=== PATIENT | female | born 1975 ===

== ENCOUNTER 2020-07-14 10:56 | Outpatient (REF) | payer OTHER, SELFPAY ==
[2020-07-14 13:57] LABS: MANUAL DIFF FLAG NO
[2020-07-14 14:03] LABS: Basophils Percent Auto 0.4 % (0-2); Eosinophils Absolute Auto 0.1 X10*3/uL (0.0-0.4); Eosinophils Percent Auto 1.2 % (0-4); Hematocrit 38.4 % (37-47); Hemoglobin 12.4 g/dl (12.0-16.0); Imm Gran Abs Auto 0.04 X10*3/uL (0.00-0.03); Imm Gran Pct Auto 0.4 % (0.0-0.4); Lymphocytes Absolute Auto 3.2 X10*3/uL (1.2-4.9); Lymphocytes Percent Auto 30.5 % (20-40); Mean Corpuscular HGB Conc 32.3 g/dl (31.0-35.0); Mean Corpuscular Hemoglobin 26.1 pg (27.0-33.0); Mean Corpuscular Volume 80.8 fL (80-98); Mean Platelet Volume 10.7 fL (9.4-12.3); Monocytes Absolute Auto 0.8 X10*3/uL (0.1-1.2); Monocytes Percent Auto 7.6 % (2-11); Neutrophils Absolute Auto 6.3 X10*3/uL (2.0-8.3); Neutrophils Percent Auto 59.9 % (45-73); Platelet Count 305 X10*3/uL (160-400); Red Blood Count 4.75 X10*6/uL (4.20-5.50); Red Cell Distribution Width 13.8 % (11.0-16.0); White Blood Count 10.6 X10*3/uL (4.8-10.8)
[2020-07-14 14:09] LABS: Estimated Average Glucose 154 mg/dL
[2020-07-14 14:33] LABS: Anion Gap 10 (12-20); Blood Urea Nitrogen 7 mg/dL (9-16); Calcium 9.3 mg/dL (8.4-10.2); Carbon Dioxide 32 mmol/L (22-29); Chloride 96 mmol/L (96-108); Cholesterol 218 mg/dL; Estimated Glomerular Filt Rate > 60; Glucose Fasting 109 mg/dL (60-99); HDL Cholesterol 56 mg/dL; LDL Cholesterol Calculated 133 mg/dl; Lipase 46 U/L (8-78); Potassium 4.4 mmol/l (3.3-5.1); Sodium 134 mmol/L (135-145); Triglycerides 146 mg/dL
[2020-07-14 14:44] LABS: Creatinine Urine 208.39 mg/dL; Microalbum/Creatinine Ratio Ur 543.6 ug/mg cr
[2020-07-14 14:55] LABS: SARS COV2 IgG Negative (Negative)
[2020-07-14 14:59] LABS: Vitamin B12 1287 pg/mL (200-900)
[2020-07-18 13:47] LABS: Vitamin D 25-OH, D2 <4 ng/mL; Vitamin D 25-OH, D3 30 ng/mL; Vitamin D 25-OH, Total 30 ng/mL (30-100)
== END 2020-07-14 10:57 | disposition home or self-care (01) ==
LOC: HO.HMGCLDS 10:56
PROVIDERS: PCP Internal Medicine; Visit Provider Internal Medicine
DX: Z20.828 Contact with and (suspected) exposure to other viral communicable diseases (principal); E13.9 Other specified diabetes mellitus without complications; E66.9 Obesity, unspecified; R10.13 Epigastric pain
CPT/HCPCS: 36415; 80048; 80061; 82043; 82306; 82607; 83036; 83690; 85025; 86769; U0003

== ENCOUNTER 2020-11-24 11:27 | Outpatient (REF) | payer OTHER, SELFPAY ==
--- NOTE | ~2020-11-24 | MM_ITS ---
EXAMINATION: MM SCREENING DIGITAL BREAST TOMOSYNTHESIS, BILATERAL CLINICAL INFORMATION: Screening. Asymptomatic. The lifetime risk of breast cancer based on the Tyrer-Cuzick Model is 11%. COMPARISON: Mammography: 07/21/2019 and baseline exam 06/19/2018 TECHNIQUE: Digital breast tomosynthesis is performed in both the craniocaudal and mediolateral oblique views along with computer-aided detection (CAD). Synthesized 2D images are generated from the tomosynthesis. FINDINGS: There are scattered areas of fibroglandular density (ACR BI-RADS breast composition Category b). There are no significant masses, abnormal calcifications, or other abnormalities. Breast tissue composition borders on heterogeneously dense. Parenchymal pattern is similar to prior studies. The skin contours are smooth. No significant changes. MM/MM tomosynthesis screening BI IMPRESSION: No mammographic evidence of malignancy. ASSESSMENT: BI-RADS 1: Negative RECOMMENDATION: Routine annual mammography screening. This patient's information was entered into a reminder system with a target due date for their next mammogram.
== END 2020-11-24 11:28 | disposition home or self-care (01) ==
LOC: HO.MAMMO 11:27
PROVIDERS: Visit Provider Internal Medicine
DX: Z12.31 Encounter for screening mammogram for malignant neoplasm of breast (principal)
CPT/HCPCS: 77063; 77067

== ENCOUNTER 2021-01-19 09:32 | Outpatient (REF) | payer OTHER, SELFPAY ==
[2021-01-19 11:30] LABS: MANUAL DIFF FLAG NO
[2021-01-19 11:49] LABS: Basophils Percent Auto 0.5 % (0-2); Eosinophils Absolute Auto 0.2 X10*3/uL (0.0-0.4); Eosinophils Percent Auto 2.4 % (0-4); Hematocrit 36.6 % (37-47); Hemoglobin 11.4 g/dl (12.0-16.0); Imm Gran Abs Auto 0.02 X10*3/uL (0.00-0.03); Imm Gran Pct Auto 0.2 % (0.0-0.4); Lymphocytes Absolute Auto 3.1 X10*3/uL (1.2-4.9); Lymphocytes Percent Auto 35.9 % (20-40); Mean Corpuscular HGB Conc 31.1 g/dl (31.0-35.0); Mean Corpuscular Hemoglobin 25.1 pg (27.0-33.0); Mean Corpuscular Volume 80.4 fL (80-98); Mean Platelet Volume 10.3 fL (9.4-12.3); Monocytes Absolute Auto 0.9 X10*3/uL (0.1-1.2); Monocytes Percent Auto 9.9 % (2-11); Neutrophils Absolute Auto 4.5 X10*3/uL (2.0-8.3); Neutrophils Percent Auto 51.1 % (45-73); Platelet Count 280 X10*3/uL (160-400); Red Blood Count 4.55 X10*6/uL (4.20-5.50); Red Cell Distribution Width 13.2 % (11.0-16.0); White Blood Count 8.7 X10*3/uL (4.8-10.8)
[2021-01-19 12:08] LABS: Alanine Aminotransferase 17 U/L (0-31); Alkaline Phosphatase 78 U/L (39-117); Amylase 80 U/L (28-100); Anion Gap 11 (12-20); Aspartate Amino Transferase 14 U/L (5-31); Bilirubin Total 0.4 mg/dL (0.0-1.0); Blood Urea Nitrogen 10 mg/dL (9-16); Calcium 9.2 mg/dL (8.4-10.2); Carbon Dioxide 28 mmol/L (22-29); Chloride 101 mmol/L (96-108); Estimated Glomerular Filt Rate > 60; Glucose Random 138 mg/dL (60-115); Potassium 4.2 mmol/L (3.3-5.1); Sodium 136 mmol/L (135-145); Total Protein 7.2 g/dL (6.5-8.0)
== END 2021-01-19 09:33 | disposition home or self-care (01) ==
LOC: HO.HMGCLDS 09:32
PROVIDERS: PCP Internal Medicine; Visit Provider Internal Medicine
DX: R10.13 Epigastric pain (principal); R07.9 Chest pain, unspecified
CPT/HCPCS: 36415; 80053; 82150; 85025

== ENCOUNTER → 2021-01-20 14:47 | Outpatient (BNVA) | payer OTHER, SELFPAY | PROVIDERS: PCP Internal Medicine; Visit Provider Surgery | DX: R10.13 Epigastric pain (principal); R14.0 Abdominal distension (gaseous); R11.0 Nausea; K59.00 Constipation, unspecified; E67.8 Other specified hyperalimentation; Z88.5 Allergy status to narcotic agent; Z88.8 Allergy status to other drugs, medicaments and biological substances; Z98.84 Bariatric surgery status; Z79.4 Long term (current) use of insulin; Z79.899 Other long term (current) drug therapy | CPT/HCPCS: 99212 ==

== ENCOUNTER → 2021-02-01 14:40 | Outpatient (BNVA) | payer OTHER, SELFPAY | PROVIDERS: PCP Internal Medicine; Referring Provider Internal Medicine; Visit Provider Physician Assistant ==

== ENCOUNTER → 2021-04-27 08:21 | Outpatient (REF) | payer OTHER, SELFPAY ==
--- NOTE | ~2021-04-27 | NM_ITS ---
EXAMINATION: RADIONUCLIDE SOLID FOOD GASTRIC EMPTYING 4-HOUR STUDY CLINICAL INFORMATION: Early satiety, GERD, diabetes type 2, vomiting, nausea, distended. COMPARISON: No previous gastric emptying study is available for comparison. TECHNIQUE: A standard meal consisting of 4 oz of Egg Beaters brand equivalent tagged with 640 microcuries Tc-99m Sulfur Colloid, 8 oz water and 2 slices of toast with jelly was administered orally to the patient. Images were obtained using a dual head gamma camera in the anterior and posterior projections over of the stomach immediately post ingestion and at hourly intervals up to 4 hours post ingestion. The anterior and posterior counts at each time interval were averaged using the geometric mean and expressed as percentage of the immediate post ingestion counts. FINDINGS: There is good visualization of activity in the stomach immediately post ingestion. As the study progresses, there is only minimal visualization of small bowel activity. At the end of the study there is marked abnormal retention of activity in the stomach. Retention in the stomach at each time interval was: 1 hour 97% (normal 37%-90%) 2 hours 90% (normal 30%-60%) 3 hours 78% 4 hours 74% (normal 0%-10%) TX/TX gastric emptying study IMPRESSION: Abnormal study. There is marked abnormal retention of solid food in the stomach at 4 hours.
== END ==
LOC: HO.NUCMED 08:21
PROVIDERS: Visit Provider Physician Assistant
DX: R68.81 Early satiety (principal); E13.9 Other specified diabetes mellitus without complications
CPT/HCPCS: 78264; A9541

== ENCOUNTER → 2021-05-17 09:23 | Outpatient (BNVA) | payer OTHER, SELFPAY | PROVIDERS: PCP Internal Medicine; Referring Provider Internal Medicine; Visit Provider Physician Assistant ==

== ENCOUNTER 2021-08-15 11:26 | Outpatient (REF) | payer OTHER, SELFPAY ==
[2021-08-15 14:27] LABS: Alanine Aminotransferase 20 U/L (0-31); Albumin Level 4.3 g/dL (3.5-5.0); Alkaline Phosphatase 58 U/L (39-117); Anion Gap 11 (12-20); Aspartate Amino Transferase 18 U/L (5-31); Blood Urea Nitrogen 12 mg/dL (9-16); Calcium 9.4 mg/dL (8.4-10.2); Carbon Dioxide 29 mmol/L (22-29); Chloride 102 mmol/L (96-108); Estimated Glomerular Filt Rate > 60; Glucose Random 98 mg/dL (60-115); Potassium 4.3 mmol/L (3.3-5.1); Sodium 138 mmol/L (135-145); Total Protein 7.6 g/dL (6.5-8.0)
[2021-08-16 06:31] LABS: LDL Cholesterol Direct 94 mg/dL (<100)
== END 2021-08-15 11:27 | disposition home or self-care (01) ==
LOC: HO.HMGCLDS 11:26
PROVIDERS: PCP Internal Medicine; Visit Provider Internal Medicine
DX: E13.9 Other specified diabetes mellitus without complications (principal); E66.09 Other obesity due to excess calories; I10 Essential (primary) hypertension; K21.9 Gastro-esophageal reflux disease without esophagitis
CPT/HCPCS: 36415; 80053; 83721

== ENCOUNTER 2022-08-15 13:29 | Outpatient (REF) | payer OTHER, SELFPAY ==
[2022-08-15 14:39] LABS: MANUAL DIFF FLAG NO
[2022-08-15 14:59] LABS: Basophils Percent Auto 0.2 % (0-2); Eosinophils Absolute Auto 0.1 X10*3/uL (0.0-0.4); Hematocrit 37.4 % (37.0-47.0); Hemoglobin 11.7 g/dl (12.0-16.0); Imm Gran Abs Auto 0.02 X10*3/uL (0.00-0.03); Imm Gran Pct Auto 0.4 % (0.0-0.4); Lymphocytes Absolute Auto 1.9 X10*3/uL (1.2-4.9); Mean Corpuscular HGB Conc 31.3 g/dl (31.0-35.0); Mean Corpuscular Hemoglobin 24.9 pg (27.0-33.0); Mean Corpuscular Volume 79.6 fL (80.0-98.0); Mean Platelet Volume 10.3 fL (9.4-12.3); Monocytes Absolute Auto 0.7 X10*3/uL (0.1-1.2); Monocytes Percent Auto 14.6 % (2-11); Neutrophils Absolute Auto 2.2 x10*3/uL (2.0-8.3); Neutrophils Percent Auto 43.8 % (45-73); Platelet Count 245 X10*3/uL (160-400); Red Cell Distribution Width 13.5 % (11.0-16.0); White Blood Count 4.9 X10*3/uL (4.8-10.8)
[2022-08-15 15:45] LABS: Alanine Aminotransferase 29 U/L (0-31); Albumin Level 4.3 g/dL (3.5-5.0); Alkaline Phosphatase 75 U/L (39-117); Anion Gap 11 (12-20); Aspartate Amino Transferase 26 U/L (5-31); Bilirubin Total 0.4 mg/dL (0.0-1.0); Blood Urea Nitrogen 7 mg/dL (9-16); Calcium 9.3 mg/dL (8.4-10.2); Carbon Dioxide 29 mmol/L (22-29); Chloride 101 mmol/L (96-108); Estimated Glomerular Filt Rate > 60; Glucose Random 100 mg/dL (60-115); Potassium 3.7 mmol/L (3.3-5.1); Sodium 137 mmol/L (135-145); Thyroid Stimulating Hormone 2.26 uIU/mL (0.32-4.0); Total Protein 7.7 g/dL (6.5-8.0)
== END 2022-08-15 13:30 | disposition home or self-care (01) ==
LOC: HO.LAB 13:29
PROVIDERS: PCP Internal Medicine; Visit Provider Physician Assistant
DX: R10.13 Epigastric pain (principal); A04.8 Other specified bacterial intestinal infections; K58.9 Irritable bowel syndrome, unspecified; K31.84 Gastroparesis
CPT/HCPCS: 36415; 80053; 84443; 85025; 87338; 99202; 99212

== ENCOUNTER 2023-06-22 14:14 | Outpatient (AMB) | payer OTHER, SELFPAY ==
[2023-06-22 14:22] VITALS: BP 122/82; PULSE 72; O2SAT 100; BMI 30.4
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
== END 2023-06-22 15:14 | disposition home or self-care (01) ==
PROVIDERS: PCP Internal Medicine; Visit Provider Internal Medicine
DX: R10.2 Pelvic and perineal pain (principal); N32.9 Bladder disorder, unspecified; M79.642 Pain in left hand
CPT/HCPCS: 99214

== ENCOUNTER 2023-06-22 14:40 | Outpatient (REF) | payer OTHER, SELFPAY ==
[2023-06-22 16:26] LABS: Appearance Urine Clear; Color Urine Yellow; Glucose Urine UA Negative (Negative); Leukocyte Esterase Urine Small (1+) (Negative); Nitrite Urine Negative (Negative); PH 6.5 (5.0-9.0); Specific Gravity - Urine 1.025 (1.005-1.025); UMIC TRIGGER UACC YES; Urine Blood Trace (Negative); Urine Ketones Negative (Negative); Urine Protein Negative (Neg-Trace)
[2023-06-22 16:55] LABS: Bacteria Urine None Seen (None Seen); Hyaline Casts Urine 0-2 /LPF (0-2); Squamous Epithelial Cell Urine 0-2 /HPF (0-2); UACC Culture Trigger YES; WBC Urine 0-5 /HPF (0-5)
== END 2023-06-22 14:41 | disposition home or self-care (01) ==
LOC: HO.HMGCLDS 14:40
PROVIDERS: PCP Internal Medicine; Visit Provider Internal Medicine
DX: R10.2 Pelvic and perineal pain (principal)
CPT/HCPCS: 81001; 87086

== ENCOUNTER 2023-06-29 14:33 | Outpatient (REF) | payer OTHER, SELFPAY ==
--- NOTE | ~2023-06-29 | US_ITS ---
EXAMINATION: US PELVIS LIMITED (BLADDER) CLINICAL INFORMATION: Bladder disorder, unspecified. COMPARISON: CT abdomen and pelvis 11/07/2019 TECHNIQUE: Real-time imaging of the bladder. FINDINGS: BLADDER: Well distended and normal. Bilateral ureteral jets are demonstrated. Prevoid bladder volume is 203 mL. Postvoid bladder volume is 13 mL. ADDITIONAL FINDINGS: Incidental note is made of 4.8 x 4.3 x 5.1 cm and 3.8 x 4.0 x 4.7 cm uterine fibroids. US/US bladder IMPRESSION: 1. Normal appearance of the bladder. 2. Incidental note of uterine fibroids.
== END 2023-06-29 14:34 | disposition home or self-care (01) ==
LOC: HO.HMGCX 14:33
PROVIDERS: PCP Internal Medicine; Visit Provider Internal Medicine
DX: N32.9 Bladder disorder, unspecified (principal)
CPT/HCPCS: 76857

== ENCOUNTER 2023-07-31 15:24 | Outpatient (AMB) | payer OTHER, SELFPAY ==
[2023-07-31 15:25] VITALS: BP 120/80; PULSE 76; O2SAT 99; BMI 30.8
--- NOTE | 2023-07-31 15:25 | HO.NEPHOV ---
HPI HPI Comments History of Present Illness Details 48-year-old man with a history of longstanding diabetes mellitus obesity with proteinuria. She is here for annual follow-up. Today she has no new complaints. He has a history of renal stones who to diagnose in [place] about a year ago. She was on Ozempic. She has lost about 10-15 lb. She is unable to obtain Ozempic for the past 2 weeks due to shortage in the pharmacy. [facility] Medical History Elevated vitamin B12 level Diabetes 1.5, managed as type 2 Exposure to COVID-19 virus Epigastric pain Obesity Surgical History H/O abdominoplasty Family History Mother Diabetes Father Diabetes Social History Household Members: Children and None Housing: Condominium Alcohol intake: current Alcohol intake frequency: holidays/special occasions only Patient Tobacco Use Status: Never used Tobacco e-Cigarette/Vaping Use: Never Used Current occupational status: unemployed Cognitive needs: No Hearing needs: No Vision needs: No Vital Signs 07/31/23 15:25 Height 5 ft 6 in Weight 191 lb BMI 30.8 BP 120/80 Blood Pressure Location Lt brachial Position Sitting Pulse 76 Pulse Source Pulse Oximeter Pulse Oximetry (%) 99 Oxygen Delivery Method Room Air Physical Exam Vital Signs: Last Vital Signs Pulse 76 07/31/23 15:25 BP 120/80 07/31/23 15:25 Pulse Ox 99 07/31/23 15:25 Oxygen Delivery Method Room Air 07/31/23 15:25 BMI result Body Mass Index 30.8 Const General: comfortable Nutritional Appearance: well nourished Orientation/consciousness: patient oriented x3 HEENT Head: No normal to inspection Mouth: moist mucous membranes Neck Neck: Yes supple and Yes no JVD Resp Auscultation: clear to auscultation bilaterally, no rales and rub present Cardio Jugular venous distension: no JVD Palpation: no palpable S3 and no palpable S4 Heart sounds: no rubs GI Palpation (GI): Soft to palpation and nontender Percussion: No Fluid wave present General: Yes no CVA tenderness Back/Spine/Pelvis Back: no CVA tenderness Skin General skin exam: no rashes or lesions noted Neuro General: patient oriented x3 Extrem General: Yes no pedal edema and No clubbing Assessment & Plan Assessment & Plan (1) Proteinuria: Code(s): R80.9 - Proteinuria, unspecified (2) Nephrolithiasis: Code(s): N20.0 - Calculus of kidney Plan Middle-aged woman with a history of type submitted obesity with the proteinuria. She is content losartan 50 mg for renal protection. I will continue same dose of losartan. Blood pressure control. Will recheck urinary protein excretion and losartan can be titrated upwards based on the urine protein excretion. As well nephrolithiasis I ordered a follow-up renal ultrasonogram to rule out any active kidney stones. I have discussed importance of low-sodium diet and increase her fluid intake to maintain urine output over 2 L. Orders: Orders Total Protein Urine Random Today N20.0 - Calculus of kidney, R80.9 - Proteinuria, unspecified US renal BI Today N20.0 - Calculus of kidney, R80.9 - Proteinuria, unspecified Electrolytes Today N20.0 - Calculus of kidney, R80.9 - Proteinuria, unspecified Blood Urea Nitrogen Today N20.0 - Calculus of kidney, R80.9 - Proteinuria, unspecified Creatinine Today N20.0 - Calculus of kidney, R80.9 - Proteinuria, unspecified Calcium Today N20.0 - Calculus of kidney, R80.9 - Proteinuria, unspecified Creatinine Urine Today N20.0 - Calculus of kidney, R80.9 - Proteinuria, unspecified UA and rflx microscopic Today N20.0 - Calculus of kidney, R80.9 - Proteinuria, unspecified Coding Level of Care Code Est Pt Level 3 (87529) Diagnoses Proteinuria R80.9 Nephrolithiasis N20.0 Results Reviewed Nephrology Results: Hgb 11.7 g/dl (12.0-16.0) L 08/15/22 WBC 4.9 X10*3/uL (4.8-10.8) 08/15/22 Plt Count 245 X10*3/uL (160-400) 08/15/22 Sodium 137 mmol/L (135-145) 08/15/22 Potassium 3.7 mmol/L (3.3-5.1) 08/15/22 Chloride 101 mmol/L (96-108) 08/15/22 Carbon Dioxide 29 mmol/L (22-29) 08/15/22 BUN 7 mg/dL (9-16) L 08/15/22 Creatinine 0.70 mg/dL (0.5-1.4) 08/15/22 Calcium 9.3 mg/dL (8.4-10.2) 08/15/22 Urine Protein Negative mg/dL (Neg-Trace) 06/22/23
== END 2023-07-31 15:45 | disposition home or self-care (01) ==
PROVIDERS: PCP Internal Medicine; Visit Provider Internal Medicine Hypertension Specialist
DX: R80.9 Proteinuria, unspecified (principal); N20.0 Calculus of kidney
CPT/HCPCS: 99213

== ENCOUNTER → 2023-07-31 15:24 | Outpatient (BNVA) | payer OTHER, SELFPAY | PROVIDERS: PCP Internal Medicine; Visit Provider Internal Medicine Hypertension Specialist | DX: R80.9 Proteinuria, unspecified (principal); N20.0 Calculus of kidney | CPT/HCPCS: 99212 ==

== ENCOUNTER 2023-08-09 10:29 | Outpatient (REF) | payer OTHER, SELFPAY ==
--- NOTE | ~2023-08-09 | US_ITS ---
EXAMINATION: US RETROPERITONEAL LIMITED (RENAL ONLY) CLINICAL INFORMATION: Calculus of kidney. COMPARISON: CT abdomen and pelvis 11/07/2019. Ultrasound abdomen complete with elastography 03/14/2017. Ultrasound abdomen 05/22/2014. TECHNIQUE: Real-time imaging of the kidneys. FINDINGS: RIGHT KIDNEY: 12.6 x 4.8 x 7.4 cm (SAG x AP x TRV). The kidney is normal in size, contour, and echogenicity. Renal cortical thickness is normal. No focal parenchymal lesions. No hydronephrosis. Punctate nonobstructing calcification in the mid kidney. There is trace free fluid adjacent to the upper pole. LEFT KIDNEY: 12.4 x 6.2 x 5.9 cm (SAG x AP x TRV). The kidney is normal in size, contour, and echogenicity. Renal cortical thickness is normal. No calculi or focal parenchymal lesions. No hydronephrosis. US/US renal BI IMPRESSION: 1. Punctate nonobstructing calcification in the mid right kidney. 2. Trace free fluid adjacent to the upper pole of the right kidney. 3. Normal appearance of the left kidney.
[2023-08-09 13:29] LABS: Appearance Urine Clear; Color Urine Yellow; Glucose Urine UA Negative (Negative); Leukocyte Esterase Urine Negative (Negative); Nitrite Urine Negative (Negative); PH 6.5 (5.0-9.0); Urine Blood Negative (Negative); Urine Ketones Negative (Negative); Urine Protein Trace mg/dL (Neg-Trace)
[2023-08-09 13:48] LABS: Anion Gap 14 (12-20); Blood Urea Nitrogen 15 mg/dL (9-16); Calcium 9.8 mg/dL (8.4-10.2); Carbon Dioxide 28 mmol/L (22-29); Chloride 102 mmol/L (96-108); Estimated Glomerular Filt Rate 56; Potassium 4.1 mmol/L (3.3-5.1); Sodium 140 mmol/L (135-145)
[2023-08-09 14:29] LABS: Creatinine Urine 64.69 mg/dL; Total Protein Urine Random 21 mg/dL (<12)
== END 2023-08-09 10:30 | disposition home or self-care (01) ==
LOC: HO.HMGCX 10:29
PROVIDERS: PCP Internal Medicine; Visit Provider Internal Medicine Hypertension Specialist
DX: R10.2 Pelvic and perineal pain (principal); N20.0 Calculus of kidney; R80.9 Proteinuria, unspecified
CPT/HCPCS: 36415; 76775; 80051; 81003; 82310; 82565; 82570; 84156; 84520

== ENCOUNTER 2023-12-11 09:50 | Outpatient (AMB) | payer OTHER, SELFPAY ==
[2023-12-11 09:51] VITALS: BP 120/80; PULSE 76; TEMP 36.4; O2SAT 97; BMI 29.4
--- NOTE | 2023-12-11 09:51 | AM.OFFWIN_ITS ---
Intake Vital Signs 12/11/23 09:51 12/11/23 10:06 Height 5 ft 6 in Weight 182 lb BMI 29.4 BP 120/80 118/78 Blood Pressure Location Lt brachial Rt brachial Position Sitting Pulse 76 Pulse Source Pulse Oximeter Temp 97.6 F Temp Source Temporal Artery Scan Pulse Oximetry (%) 97 Oxygen Delivery Method Room Air Intake Visit Reasons: EP Headache, Dizzy, Chest pain, ?Elevated BP Intake Note: pt is here today for headache dizzy chest pain started 1 week ago Patient Tobacco Use Status: Never used Tobacco Allergies iron dextran complex [IRON DEXTRAN COMPLEX] Allergy (Severe, Verified 12/11/23 10:04) ANGIOEDEMA morphine [MORPHINE] Allergy (Unknown, Verified 12/11/23 10:04) ITCHING; GENERALIZED BURNING SENSATION, rash, rash lisinopril Adverse Reaction (Unknown, Verified 12/11/23 10:04) cough Iron Allergy (Unknown, Uncoded 12/11/23 10:04) unknown Pt states no known allergy to Allergy (Unknown, Uncoded 12/11/23 10:04) unknown Medication List - Last Reconciled 12/11/23 by HIRAM Duffy atorvastatin 20 mg PO DAILY 90 days losartan 100 mg PO DAILY metformin 1,000 mg PO DAILY omeprazole 40 mg PO DAILY 90 days semaglutide (Ozempic) 0.25 mg subcut QWEEK valacyclovir (Valtrex) 1,000 mg PO DAILY 14 days Do you need a note to return to daycare/school/sports/work: No HPI HPI Comments History of Present Illness Details Patient is a 48-year-old female in today for a sick visit. Patient states that 8 days ago she took her blood pressure at home that was 200/100, went to local emergency room. Patient states she had workup in the was sent home with nausea medication. Patient states that since then she restarted taking her losartan 100 mg prescription. States that she stopped taking originally because she gets forgetful. At the appointment today patient denies dizziness, numbness, nausea, vomiting, diarrhea. Patient states she does have slight chest pain, and slight headache. Will obtain EKG today. Patient will be instructed to continue taking her losartan as prescribed, is very important. Blood pressure today is normal. Also obtain labs. [facility] Medical History Elevated vitamin B12 level Diabetes 1.5, managed as type 2 Exposure to COVID-19 virus Epigastric pain Obesity Surgical History H/O abdominoplasty Family History Mother Diabetes Father Diabetes Social History Household Members: Children and None Housing: Condominium Alcohol intake: current Alcohol intake frequency: holidays/special occasions only Patient Tobacco Use Status: Never used Tobacco e-Cigarette/Vaping Use: Never Used Current occupational status: unemployed Cognitive needs: No Hearing needs: No Vision needs: No Review of Systems Const All systems reviewed & are unremarkable except as noted in HPI and below Denies body aches, Denies fever(s) and Reports headache(s) Eyes Denies blurry vision, Denies diplopia and Denies loss of peripheral vision ENT Denies dizziness and Reports headache(s) Card Reports chest pain (slight), Denies syncope and Denies dyspnea Resp Denies dyspnea GI Denies diarrhea, Denies nausea and Denies vomiting Neuro Denies dizziness, Denies syncope and Reports headache(s) Physical Exam Vital Signs: Vital signs reviewed stable. Const General: cooperative and no acute distress Orientation/consciousness: patient oriented x3 Limitations: no limitations HEENT Head: Yes normal to inspection Eyes Sclerae: sclerae normal Corneas: corneas normal Pupils: Equal, round and reactive pupils present EOM: EOMs intact bilaterally Direct Ophthalmoscopy: normal light reflex and no photophobia Neck Neck: Yes normal visual inspection, Yes full ROM and Yes no lymphadenopathy Carotids: normal carotid upstroke Resp Auscultation: clear to auscultation bilaterally Cardio Rate: regular rate Rhythm: regular rhythm Heart sounds: Murmur heart sound present systolic GI Inspection: Yes normal to inspection Neuro General: patient oriented x3 Cranial nerves: Yes Equal, round and reactive pupils present Assessment & Plan Assessment & Plan (1) Headache: Comment: Patient's blood pressure normal at appointment today. Patient had EKG. Will give patient meloxicam. Patient has been instructed to keep taking losartan as prescribed daily. Patient has been educated on signs of worsening symptoms and when to return to the walk-in or when to present to the ED. Code(s): R51.9 - Headache, unspecified Qualifiers: Headache type: unspecified Headache chronicity pattern: unspecified pattern Intractability: not intractable Qualified Code(s): R51.9 - Headache, unspecified Plan: Take your medications as prescribed. If you were prescribed antibiotics today, it is important that you take your medication to their entirety, do not skip any doses, do not finish them early. Follow-up with your primary care provider this week. Return to the emergency department with new or worsening symptoms. Such as fevers, chills, chest pain, shortness of breath, nausea, vomiting, dizziness, headache, vision changes, lethargy In case of emergency call 911 Plan Patient should follow-up with PCP Orders: Orders AMB EKG-In Office Today Z13.6 - Encounter for screening for cardiovascular disorders Medications: New meloxicam Do not combine with other NSAIDS 15 mg PO DAILY 10 tabs 0RF Coding Level of Care Code Est Pt Level 3 (36695) Diagnoses Nonintractable headache, unspecified chronicity pattern, unspecified headache type R51.9 Headache type: unspecified Headache chronicity pattern: unspecified pattern Intractability: not intractable Time Spent (min) 35
[2023-12-11 10:06] VITALS: BP 118/78
== END 2023-12-11 10:45 | disposition home or self-care (01) ==
PROVIDERS: PCP Internal Medicine; Visit Provider Nurse Practitioner Primary Care
DX: R51.9 Headache, unspecified (principal)
CPT/HCPCS: 99213

== ENCOUNTER 2023-12-14 12:16 | Outpatient (AMB) | payer OTHER, SELFPAY ==
[2023-12-14 12:22] VITALS: BP 134/82; PULSE 80; O2SAT 98; BMI 29.7
--- NOTE | 2023-12-14 12:22 | A.OFFPC_ITS ---
Vital Signs 12/14/23 12:22 Height 5 ft 6 in Weight 184 lb 2 oz BMI 29.7 BP 134/82 Blood Pressure Location Rt brachial Position Sitting Pulse 80 Pulse Source Pulse Oximeter Pulse Oximetry (%) 98 Oxygen Delivery Method Room Air Intake Visit Reasons: Walk in F/u BP Allergies iron dextran complex [IRON DEXTRAN COMPLEX] Allergy (Severe, Verified 12/14/23 12:24) ANGIOEDEMA morphine [MORPHINE] Allergy (Unknown, Verified 12/14/23 12:24) ITCHING; GENERALIZED BURNING SENSATION, rash, rash lisinopril Adverse Reaction (Unknown, Verified 12/14/23 12:24) cough Iron Allergy (Unknown, Uncoded 12/11/23 10:04) unknown Pt states no known allergy to Allergy (Unknown, Uncoded 12/11/23 10:04) unknown Medication List - Last Reconciled 12/14/23 by Chelsea Mascorro MD losartan 100 mg PO DAILY metformin 1,000 mg PO DAILY omeprazole 40 mg PO DAILY 90 days valacyclovir (Valtrex) 1,000 mg PO DAILY 14 days Tobacco use date assessed: 12/14/23 Dental Screening Dental Screen Date: 12/14/23 Did you have a dental visit in the last 12 months?: Yes Did you have a dental problem in the last 6 months where you did not have access to dental care?: No Was dental information given to patient?: Patient has dentist HPI Walk in F/u BP HPI Details Patient is a 48-year-old female Who also sees endocrinology for the management of diabetes And nephrology for nephropathy Came in today as she was concerned about her blood pressure Blood pressure is stable patient is on losartan 100 mg She is currently having nasal congestion since last night Patient says that off and on she feels palpitations and she would like to see a stamp machine servicer I have ordered Holter monitor for the patient while she wait to see the Cardiology She does not have any palpitation at this time or any chest pain I have ordered labs for her to be done today [facility] Medical History Elevated vitamin B12 level Diabetes 1.5, managed as type 2 Exposure to COVID-19 virus Epigastric pain Obesity Surgical History H/O abdominoplasty Family History Mother Diabetes Father Diabetes Social History Household Members: Children and None Housing: Condominium Alcohol intake: current Alcohol intake frequency: holidays/special occasions only Patient Tobacco Use Status: Never used Tobacco e-Cigarette/Vaping Use: Never Used Current occupational status: unemployed Cognitive needs: No Hearing needs: No Vision needs: No Questionnaire Thrive Questionnaire Date Thrive assessed: 06/21/21 ISAAC-7 AMB Questionnaire ISAAC-7 Date ISAAC - 7 assessed: 06/22/23 Source: Developed by Drs. Apolinar Green, Princess Greco, Horacio Gifford and colleagues, with an educational joaquin from [employer]. Review of Systems Const Denies chills and Denies fever(s) ENT Denies epistaxis and Denies nasal discharge Card Denies chest pain Resp Denies chest congestion, Denies cough and Denies hemoptysis GI Denies diarrhea and Denies nausea Skin/Breast Denies rash Neuro Reports no additional complaints Psych Reports no additional complaints Endo Reports no additional complaints Physical exam (Primary Care) Vital Signs: Last Vital Signs Pulse 80 12/14/23 12:22 BP 134/82 12/14/23 12:22 Pulse Ox 98 12/14/23 12:22 Oxygen Delivery Method Room Air 12/14/23 12:22 BMI result Body Mass Index 29.7 Tobacco/Smoking Status: Tobacco use Status Tobacco use date assessed 12/14/23 12/14/23 12:26 Patient Tobacco Use Status Never used Tobacco 12/14/23 12:26 e-Cigarette/Vaping Use Never Used 12/14/23 12:26 Thrive Assessment: Date of Thrive Assessment Date Thrive assessed 06/21/21 12/14/23 12:26 Const General: cooperative, comfortable and no acute distress Orientation/consciousness: patient oriented x3 HENMT Head: Yes normocephalic Eyes General: appearance normal, both eyes and all related structures Neck Neck: Yes supple Resp Effort & Inspection: normal respiratory effort, no cough and no stridor Cardio Rhythm: regular rhythm Heart sounds: S1 normal heart sound present and S2 normal heart sound present Skin General skin exam: turgor normal Neuro General: patient oriented x3, tone normal and moves all extremities Extrem Right lower extremity: no edema Left lower extremity: no edema Assessment and Plan Assessment & Plan (1) Diabetes 1.5, managed as type 2: Code(s): E13.9 - Other specified diabetes mellitus without complications (2) Hypertension, essential: Code(s): I10 - Essential (primary) hypertension (3) Chronic GERD: Code(s): K21.9 - Gastro-esophageal reflux disease without esophagitis (4) Environmental allergies: Code(s): Z91.09 - Other allergy status, other than to drugs and biological substances (5) Major depression, recurrent: Code(s): F33.9 - Major depressive disorder, recurrent, unspecified Qualifiers: Active/Remission status: in partial remission Qualified Code(s): F33.41 - Major depressive disorder, recurrent, in partial remission (6) Palpitation: Code(s): R00.2 - Palpitations (7) Recurrent cold sores: Code(s): B00.1 - Herpesviral vesicular dermatitis Plan Patient is a 48-year-old female , with a history of chronic GERD, depression, and allergies She also sees endocrinology for the management of diabetes And nephrology for nephropathy Came in today as she was concerned about her blood pressure Blood pressure is stable patient is on losartan 100 mg She is currently having nasal congestion since last night Patient says that off and on she feels palpitations and she would like to see a stamp machine servicer I have ordered Holter monitor for the patient while she wait to see the Cardiology She does not have any palpitation at this time or any chest pain I have ordered labs for her to be done today Orders: Orders Complete Blood Count Auto Diff Today E13.9 - Other specified diabetes mellitus without complications, E66.09 - Other obesity due to excess calories, F33.41 - Major depressive disorder, recurrent, in partial remission, I10 - Essential (primary) hypertension, K21.9 - Gastro-esophageal reflux disease without esophagitis, Z91.09 - Other allergy status, other than to drugs and biological substances Hemoglobin A1c Today E13.9 - Other specified diabetes mellitus without complications, E66.09 - Other obesity due to excess calories, F33.41 - Major depressive disorder, recurrent, in partial remission, I10 - Essential (primary) hypertension, K21.9 - Gastro-esophageal reflux disease without esophagitis, Z91.09 - Other allergy status, other than to drugs and biological substances LDL Cholesterol Direct Today E13.9 - Other specified diabetes mellitus without complications, E66.09 - Other obesity due to excess calories, F33.41 - Major depressive disorder, recurrent, in partial remission, I10 - Essential (primary) hypertension, K21.9 - Gastro-esophageal reflux disease without esophagitis, Z91.09 - Other allergy status, other than to drugs and biological substances Comprehensive Met. Panel Today E13.9 - Other specified diabetes mellitus without complications, E66.09 - Other obesity due to excess calories, F33.41 - Major depressive disorder, recurrent, in partial remission, I10 - Essential (primary) hypertension, K21.9 - Gastro-esophageal reflux disease without esophagitis, Z91.09 - Other allergy status, other than to drugs and biological substances TSH reflex Free T4 Today E13.9 - Other specified diabetes mellitus without complications, E66.09 - Other obesity due to excess calories, F33.41 - Major depressive disorder, recurrent, in partial remission, I10 - Essential (primary) hypertension, K21.9 - Gastro-esophageal reflux disease without esophagitis, Z91.09 - Other allergy status, other than to drugs and biological substances ECG 3 day holter monitor Today R00.2 - Palpitations Referrals Cardiology Referral R00.2 - Palpitations Medications: Changed From valacyclovir (Valtrex) 1,000 mg PO DAILY 14 days 14 tabs 0RF To valacyclovir 500 mg PO DAILY 90 tabs 0RF 90 days Coding Level of Care Code Est Pt Level 4 (09661) Diagnoses Diabetes 1.5, managed as type 2 E13.9 Hypertension, essential I10 Chronic GERD K21.9 Environmental allergies Z91.09 Recurrent major depressive disorder, in partial remission F33.41 Active/Remission status: in partial remission Palpitation R00.2 Recurrent cold sores B00.1
== END 2023-12-14 14:02 | disposition home or self-care (01) ==
PROVIDERS: PCP Internal Medicine; Visit Provider Internal Medicine
DX: E13.9 Other specified diabetes mellitus without complications (principal); F33.41 Major depressive disorder, recurrent, in partial remission; I10 Essential (primary) hypertension; K21.9 Gastro-esophageal reflux disease without esophagitis; Z91.09 Other allergy status, other than to drugs and biological substances; R00.2 Palpitations; B00.1 Herpesviral vesicular dermatitis
CPT/HCPCS: 99214

== ENCOUNTER 2023-12-14 12:38 | Outpatient (REF) | payer OTHER, SELFPAY ==
[2023-12-14 16:17] LABS: MANUAL DIFF FLAG NO
[2023-12-14 16:21] LABS: Basophils Absolute Auto 0.1 X10*3/uL (0.0-0.2); Basophils Percent Auto 0.7 % (0-2); Eosinophils Absolute Auto 0.1 X10*3/uL (0.0-0.4); Eosinophils Percent Auto 1.4 % (0-4); Hematocrit 40.5 % (37.0-47.0); Hemoglobin 12.7 g/dl (12.0-16.0); Imm Gran Abs Auto 0.03 X10*3/uL (0.00-0.03); Imm Gran Pct Auto 0.3 % (0.0-0.4); Mean Corpuscular HGB Conc 31.4 g/dl (31.0-35.0); Mean Corpuscular Hemoglobin 24.3 pg (27.0-33.0); Mean Corpuscular Volume 77.4 fL (80.0-98.0); Mean Platelet Volume 10.6 fL (9.4-12.3); Monocytes Absolute Auto 0.5 X10*3/uL (0.1-1.2); Monocytes Percent Auto 5.9 % (2-11); Neutrophils Absolute Auto 5.3 x10*3/uL (2.0-8.3); Neutrophils Percent Auto 58.7 % (45-73); Platelet Count 324 X10*3/uL (160-400); Red Blood Count 5.23 X10*6/uL (4.20-5.50); Red Cell Distribution Width 13.1 % (11.0-16.0); White Blood Count 9.1 X10*3/uL (4.8-10.8)
[2023-12-14 16:35] LABS: Estimated Average Glucose 146 mg/dL; Hemoglobin A1C 158.3455 umol/L; Hemoglobin A1c % 6.7 % (<6.0)
[2023-12-14 16:57] LABS: Alanine Aminotransferase 18 U/L (0-31); Albumin Level 4.3 g/dL (3.5-5.0); Alkaline Phosphatase 66 U/L (39-117); Anion Gap 15 (12-20); Aspartate Amino Transferase 17 U/L (5-31); Bilirubin Total 0.6 mg/dL (0.0-1.0); Blood Urea Nitrogen 10 mg/dL (9-16); Carbon Dioxide 27 mmol/L (22-29); Chloride 101 mmol/L (96-108); Estimated Glomerular Filt Rate > 60; Glucose Random 151 mg/dL (60-115); Potassium 3.9 mmol/L (3.3-5.1); Sodium 139 mmol/L (135-145); Total Protein 8.3 g/dL (6.5-8.0)
[2023-12-14 17:05] LABS: TSH reflex Free T4 1.18 uIU/mL (0.32-4.0)
[2023-12-16 07:39] LABS: LDL Cholesterol Direct 122 mg/dL (<100)
== END 2023-12-14 12:39 | disposition home or self-care (01) ==
LOC: HO.HMGCLDS 12:38
PROVIDERS: PCP Internal Medicine; Visit Provider Internal Medicine
DX: E13.9 Other specified diabetes mellitus without complications (principal); E66.09 Other obesity due to excess calories; K21.9 Gastro-esophageal reflux disease without esophagitis; F33.41 Major depressive disorder, recurrent, in partial remission; Z91.09 Other allergy status, other than to drugs and biological substances; I10 Essential (primary) hypertension
CPT/HCPCS: 36415; 80053; 83036; 83721; 84443; 85025

== ENCOUNTER → 2024-01-07 11:40 | Outpatient (REF) | payer OTHER, SELFPAY ==
--- NOTE | 2024-01-07 11:43 | HM_ITS ---
* Total monitoring time 2 days. * Underlying rhythm is sinus with an average rate of 88/Min. About 18% of the time, rate > 100/Min. * Rare supraventricular and ventricular ectopy. Minimal burden. * No sustained arrhythmias. * No significant pauses or AV blocks. * No patient markers or diary events. MTDD
== END ==
LOC: HO.CARD 11:40
PROVIDERS: PCP Internal Medicine; Visit Provider Internal Medicine
DX: R00.2 Palpitations (principal)
CPT/HCPCS: 93242

== ENCOUNTER → 2024-01-07 11:43 | Outpatient (BNV) | payer OTHER, SELFPAY | PROVIDERS: PCP Internal Medicine; Visit Provider Internal Medicine | DX: I49.3 Ventricular premature depolarization (principal) | CPT/HCPCS: 93244 ==

== ENCOUNTER 2024-03-18 13:09 | Outpatient (AMB) | payer OTHER, SELFPAY ==
--- NOTE | 2024-03-18 13:18 | A.OFFVIS_ITS ---
Vital Signs 03/18/24 13:20 Height 5 ft 6 in Weight 194 lb 0.108 oz BMI 31.3 BP 120/80 Blood Pressure Location Lt brachial Position Sitting Pulse 84 Intake Visit Reasons: heat regulator /[place]/ Palpitations Intake Note: New patient c/o palpitations at rest lasting about an hour Mask Layout Designer Required: No Digital Account Manager: Digital Account Manager Present Accompanied by: Child Allergies iron dextran complex [IRON DEXTRAN COMPLEX] Allergy (Severe, Verified 12/14/23 12:24) ANGIOEDEMA morphine [MORPHINE] Allergy (Unknown, Verified 12/14/23 12:24) ITCHING; GENERALIZED BURNING SENSATION, rash, rash lisinopril Adverse Reaction (Unknown, Verified 12/14/23 12:24) cough Iron Allergy (Unknown, Uncoded 12/11/23 10:04) unknown Pt states no known allergy to Allergy (Unknown, Uncoded 12/11/23 10:04) unknown Medication List - Last Reconciled 03/18/24 by Max Ventura MD atorvastatin 40 mg PO BEDTIME losartan 100 mg PO DAILY metformin 1,000 mg PO DAILY omeprazole 40 mg PO DAILY 90 days tirzepatide (Mounjaro) 5 mg subcut QWEEK valacyclovir 500 mg PO DAILY 90 days HPI Comments Details: Maira was referred here for evaluation of palpitations. She says she has increased job stress and that has led to increased symptoms of palpitation and also elevated blood pressure. She was symptoms of stress have improved although she continues to have symptoms of palpitation. She did undergo Holter monitor in December although she would not have any significant symptoms during that time and she had rare ectopy events. When I asked her why the symptoms of palpitation said that happens intermittently when she feels rapid heart rate and then symptoms subsided on their own. She denies any associated lightheadedness, syncope. No associated chest pain shortness of breath. She says she exercises and denies any symptoms of exertional chest pain or shortness of breath. No heart failure symptoms. Her blood pressures been also better controlled at this point in time. She takes all her medications including her medicines for diabetes, hypertension hyperlipidemia. [facility] Medical History Elevated vitamin B12 level Diabetes 1.5, managed as type 2 Exposure to COVID-19 virus Epigastric pain Obesity Surgical History H/O abdominoplasty Family History Mother Diabetes Father Diabetes Social History Household Members: Children and None Housing: Condominium Alcohol intake: current Alcohol intake frequency: holidays/special occasions only Patient Tobacco Use Status: Never used Tobacco e-Cigarette/Vaping Use: Never Used Current occupational status: unemployed Cognitive needs: No Hearing needs: No Vision needs: No Review of Systems Const Denies chills, Denies daytime sleepiness, Denies fatigue, Denies fever(s), Denies frequent falls, Denies poor appetite, Denies snoring, Denies stops breathing during sleep, Denies weakness, Denies weight gain and Denies weight loss Eyes Denies loss of vision ENT Denies dizziness and Denies hearing loss Card Denies chest pain, Denies claudication, Denies leg edema, Denies lightheadedness, Denies palpitations, Denies dyspnea, Denies dyspnea on exertion and Denies orthopnea Resp Denies cough, Denies excessive phlegm production, Denies dyspnea, Denies dyspnea on exertion, Denies snoring and Denies wheezing GI Denies abdominal pain, Denies hematochezia, Denies change in bowel habits, Denies nausea and Denies vomiting Denies urinary frequency and Denies dysuria Musc Denies arthralgias, Denies muscle weakness, Denies numbness and Denies other (frequent falls) Skin/Breast Denies nail changes and Denies rash Neuro Denies Abnormal speech present, Denies dizziness, Denies frequent falls, Denies loss of vision, Denies memory loss, Denies numbness and Denies weakness Psych Denies depression and Denies memory loss Endo Denies fatigue and Denies palpitations Jeronimo/Lymph Reports easy bruising and Reports other (anemia) Aller/Immun Denies wheezing Physical Exam Vital Signs: Last Vital Signs Pulse 84 03/18/24 13:20 BP 120/80 03/18/24 13:20 BMI result Body Mass Index 31.3 Const General: cooperative, comfortable, no acute distress, alert, awake, Physically active and well groomed Nutritional Appearance: obese Orientation/consciousness: patient oriented x3 Limitations: no limitations HEENT Head: Yes normocephalic and Yes atraumatic Neck Neck: Yes trachea midline, Yes supple and Yes no JVD Resp Effort & Inspection: normal respiratory effort Auscultation: clear to auscultation bilaterally Cardio Jugular venous distension: no JVD Palpation: normal PMI Rate: regular rate Rhythm: regular rhythm Heart sounds: S1 normal heart sound present, S2 normal heart sound present, no click, no gallops, no murmurs and no rubs GI Auscultation: normal bowel sounds Skin General skin exam: no rashes or lesions noted Neuro General: patient oriented x3 and no focal motor deficits Speech: No Abnormal speech present Extrem General: Yes no clubbing, cyanosis or edema Office Procedures EKG Details: EKG shows normal sinus rhythm with normal EKG with normal axis and normal intervals [id number], Complete Assessment & Plan Assessment & Plan (1) Palpitation: Code(s): R00.2 - Palpitations Category: Medical Plan: Symptoms of palpitation recent origin with symptoms of rapid heart rate. Holter monitor was unremarkable but she did not have any significant symptoms during that time. Possibility of SVT and more important possibility of atrial fibrillation exist. At this point time would require further monitoring. Will suggest a 30 day event monitor. Further treatment based on the findings. Could be related to inappropriate sinus tachycardia/anxiety related to stress. Further treatment based on the findings. Atrial fibrillation with director of product management in terms of oral anticoagulation therapy. She has multiple risk factors for the same. Will suggest echocardiogram to evaluate for cardiac structure and function. Continue aggressive risk factor modification. Continue current statin therapy. Target goal LDL less than 70 mg/dL. Blood pressure is currently well optimized. Advised stress mitigation strategies as well as avoidance of stimulants. Follow up in the clinic in 3 months time, sooner p.r.n.. Thank you for allowing me to partake in the care Orders: Orders ECG 30 day event monitor Today R00.2 - Palpitations CA echo transthoracic complete Today R00.2 - Palpitations Coding Level of Care Code New Pt Level 4 (88804) Diagnoses Palpitation R00.2 CPT Codes EKG - CPT: 25686-[id number], Complete ([id number])
[2024-03-18 13:20] VITALS: BP 120/80; PULSE 84; BMI 31.3
== END 2024-03-18 13:42 | disposition home or self-care (01) ==
PROVIDERS: PCP Internal Medicine; Visit Provider Internal Medicine Cardiovascular Disease
DX: R00.2 Palpitations (principal)
CPT/HCPCS: 93010; 99204

== ENCOUNTER → 2024-03-18 13:09 | Outpatient (BNVA) | payer OTHER, SELFPAY | PROVIDERS: PCP Internal Medicine; Visit Provider Internal Medicine Cardiovascular Disease | DX: R00.2 Palpitations (principal) | CPT/HCPCS: 93005; 99202 ==

== ENCOUNTER → 2024-05-07 09:06 | Outpatient (REF) | payer OTHER, SELFPAY ==
--- NOTE | 2024-05-07 09:10 | CA_ITS ---
Transthoracic Echocardiogram Patient (Last, First, Middle): Maira Estevez, Gender: Female Date of : 1975 Age: 49 Procedure Date: 05/07/2024 Procedure Type: Transthoracic Echocardiogram Location: OP Height: 167.64 cm Weight: 88.45 kg BSA: 1.98 m2 Heart Rate: bpm BP: 138 / 80 mmHg Crystal Report Developer: TO Referring MD: Max Ventura MD Bus Greaser: Max Ventura MD Symptoms: R00.2 - Palpitations Study Quality: Fair/Contrast ECG Rhythm: Sinus Conclusions: - 1. Normal LV ejection fraction 55-60% with impaired relaxation filling pattern 2. Normal cardiac valvular Dopplers 3. No gross pericardial effusion Findings Procedure Information Contrast agent, definity, is being given per protocol without apparent complications. Left Ventricle Normal left ventricular size, thickness, and systolic function. The visually estimated ejection fraction is between 55-60%. Spectral Doppler is indicative of an impaired relaxation filling pattern. E/E prime ratio is <8, consistent with normal filling pressures. Evidence suggests grade I (mild) diastolic dysfunction. Right Ventricle Normal right ventricular cavity size and systolic function. Atria Both atria are normal in size. Interatrial shunt cannot be excluded. Aortic Valve Normal aortic valve structure and function. There is no aortic valve stenosis. There is no aortic valve regurgitation. Mitral Valve Normal mitral valve structure and function. There is mild anterior mitral leaflet thickening. There is trace mitral valve regurgitation. There is no mitral valve stenosis. Pulmonic Valve The pulmonic valve is likely normal. Tricuspid Valve Normal tricuspid valve structure. Tricuspid regurgitation envelope is inadequate for calculation of right ventricular systolic pressure. Normal right atrial pressure. Great Vessels All visible segments of the aorta are normal in size. The pulmonary artery was not well visualized. There is no dilatation of the ascending aorta measuring 3.20 cm. Venous The inferior vena cava is normal in size and collapses greater than 50% with inspiration. Pericardium/Pleural There is no evidence of pericardial effusion. Measurements 2D Linear Measurements IVSd: 1.10 0.6-0.9/0.6-1.0 cm LVIDd: 3.95 3.9-5.3/4.2-5.9 cm LVIDd Index: 1.99 2.4-3.2/2.2-3.1 cm/m2 LVIDs: 2.77 2.0-3.6 cm LVPWd: 0.93 0.7-1.1 cm LA Diam: 3.60 2.7-3.8/3.0-4.0 cm LAIDs Index: 1.82 1.5-2.3 cm/m2 LV Mass: 158.31 67-162/88-224 g LV Mass Index: 79.95 43-95/49-115 g/m2 LVOT Diam: 2.10 3.0+(-)1.3 cm 2D Systolic Function EF 4C: 57.20 >55% EF 2C: 63.10 >55% EF BiP: 59.50 >55% Mitral Valve MV Pk E: 0.65 MV PK A: 0.57 MV Decel Time: 186.00 E/A: 1.10 E'Lateral: 8.38 E'Medial: 5.55 E/E' Med: 11.70 E/E' Lat: 7.70 PHT: 53.00 MVA PHT: 4.15 Decel [place]: 3.67 Aortic Valve AoV Pk Alfredo: 1.28 AoV Mn Alfredo: 0.90 AoV VTI: 0.22 AoV Pk Grad: 7.00 Aov Mn Grad: 4.00 SHEILA Cont.VTI: 3.15 LVOT LVOT Pk Alfredo: 1.03 LVOT Mn Alfredo: 0.68 LVOT VTI: 0.20 LVOT Pk Grad: 4.00 LVOT Mn Grad: 2.00 LVOT Diam: 2.10 LVOT Area: 3.46 Diastolic Function MV Pk E: 0.65 MV Pk A: 0.57 E/A: 1.10 E'Medial: 5.55 E/E' Med: 11.70 E' Laterial: 8.38 E/E' Lat: 7.70 Right Ventricle TAPSE (mm): 22.60 TVS' Alfredo: 11.40 Great Vessels Aorta Sinus of Valsalva: 3.28 2.0-3.5 cm Ao Asc: 3.20 2.1-3.4 cm Updated in Other Vendor System with Status of Final Max Ventura MD electronically signed on 05/08/2024 12:26:22 PM with status of Final
--- NOTE | 2024-05-07 09:10 | HM_ITS ---
* Total procedure length 30 days. Wear time 8 days. * Underlying rhythm is sinus with an average rate of 89/Min. About 47% of the time, HR >100/min. * Occasional ventricular ectopy with a burden of 1.1%. * No significant pauses or high-grade AV blocks. * No symptoms mentioned. MTDD
== END ==
LOC: HO.CARD 09:06
PROVIDERS: PCP Internal Medicine; Visit Provider Internal Medicine Cardiovascular Disease
DX: R00.2 Palpitations (principal)
CPT/HCPCS: 93270; 93306; Q9957

== ENCOUNTER → 2024-05-07 09:10 | Outpatient (BNV) | payer OTHER, SELFPAY | PROVIDERS: PCP Internal Medicine; Visit Provider Internal Medicine Cardiovascular Disease | DX: I49.3 Ventricular premature depolarization (principal) | CPT/HCPCS: 93272; 93306 ==

== ENCOUNTER 2024-05-21 13:38 | Outpatient (AMB) | payer OTHER, SELFPAY ==
[2024-05-21 13:42] VITALS: BP 124/86; PULSE 79; O2SAT 97; BMI 31.2
--- NOTE | 2024-05-21 13:42 | MHC.PC.OV ---
Vital Signs 05/21/24 13:42 Height 5 ft 6 in Weight 193 lb 4 oz BMI 31.2 BP 124/86 Blood Pressure Location Rt brachial Position Sitting Pulse 79 Pulse Source Pulse Oximeter Pulse Oximetry (%) 97 Oxygen Delivery Method Room Air Intake Visit Reasons: Regular visit Allergies iron dextran complex [IRON DEXTRAN COMPLEX] Allergy (Severe, Verified 05/21/24 13:42) ANGIOEDEMA morphine [MORPHINE] Allergy (Unknown, Verified 05/21/24 13:42) ITCHING; GENERALIZED BURNING SENSATION, rash, rash lisinopril Adverse Reaction (Unknown, Verified 05/21/24 13:42) cough Iron Allergy (Unknown, Uncoded 12/11/23 10:04) unknown Pt states no known allergy to Allergy (Unknown, Uncoded 12/11/23 10:04) unknown Medication List - Last Reconciled 05/21/24 by Chelsea Mascorro MD atorvastatin 40 mg PO BEDTIME losartan TAKE 1 TABLET BY MOUTH 1 TIME EACH DAY. metformin 1,000 mg PO DAILY omeprazole 40 mg PO DAILY 90 days tirzepatide (Mounjaro) 5 mg subcut QWEEK valacyclovir 500 mg PO DAILY 90 days Tobacco use date assessed: 05/21/24 Dental Screening Dental Screen Date: 05/21/24 Did you have a dental visit in the last 12 months?: Yes Did you have a dental problem in the last 6 months where you did not have access to dental care?: No Was dental information given to patient?: Patient has dentist HPI Regular visit HPI Details Patient is a 49-year-old female Who also sees endocrinology for the management of diabetes And nephrology for nephropathy Labs done at [facility] - [place], [place] reviewed They were done on 04/22/2024 LDL is 121 Electrolytes within normal limit Liver enzymes within normal limit Creatinine 0.7 GFR more than 60 TSH 1.41 Hemoglobin A1c 8.5% She is on Mounjaro through endocrinology Patient says that it is not controlling her sugar She would like to go on Wegovy for weight loss Notify patient that she should not take Mounjaro and the COVID together She said that she would like to stop Mounjaro and start Wegovy I have sent script after reviewing the side effects of Risk of pancreatic and thyroid cancer, nausea vomiting gastroparesis Patient already have a diagnosis of gastroparesis in medical problem However she is not having any digestive issues at this time or any nausea or vomiting She does admit to feeling stressed, and her blood pressure fluctuate up and down She agreed to start small dose of Lexapro today I have sent 10 mg tablet Patient is to take half a tablet for 3 days and then full tablet She was also instructed not to start Lexapro and Wegovy together Take Lexapro for a week and then if she tolerates it she may add Wegovy after. She also agreed to come back in 4 weeks to have a follow-up visit [facility] Medical History Elevated vitamin B12 level Diabetes 1.5, managed as type 2 Exposure to COVID-19 virus Epigastric pain Obesity Surgical History H/O abdominoplasty Family History Mother Diabetes Father Diabetes Social History Household Members: Children and None Housing: Condominium Alcohol intake: current Alcohol intake frequency: holidays/special occasions only Patient Tobacco Use Status: Never used Tobacco e-Cigarette/Vaping Use: Never Used Current occupational status: unemployed Cognitive needs: No Hearing needs: No Vision needs: No Questionnaire PHQ-9 Over the last 2 weeks, how often have you been bothered by any of the following problems? 1. Little interest or pleasure in doing things: not at all 2. Feeling down, depressed, or hopeless: not at all 3. Trouble falling or staying asleep, or sleeping too much: nearly every day 4. Feeling tired or having little energy: nearly every day 5. Poor appetite or overeating: more than half the days 6. Feeling bad about yourself - or that you are a failure or have let yourself or your family down: nearly every day 7. Trouble concentrating on things, such as reading the newspaper or watching television: nearly every day 8. Moving or speaking so slowly that other people could have noticed. Or the opposite - being so fidgety or restless that you have been moving around a lot more than usual: not at all 9. Thoughts that you would be better off or of hurting yourself in some way: not at all Total score: 14 Depression Screening Interpretation: Positive Depression Screening Follow-up: Existing condition, New Medication prescribed and Follow-up Visit Requested Depression Screening Done: Yes 13183 - PHQ-9 Billing: Yes Source: Developed by Drs. Apolinar Green, Princess Greco, Horacio Gifford and colleagues, with an educational joaquin from [employer]. Thrive Questionnaire Date Thrive assessed: 05/21/24 I am a: Patient What is your living situation today?: I have a steady place to live Within the past 12 months, did the food you bought not last and you didn't have the money to get more?: Often true Within the past 12 months, did you worry whether your food would run out before you got money to buy more?: I choose not to answer this question Do you have trouble paying for medicines?: Yes Do you have trouble getting transportation to medical appointments?: I choose not to answer this question Do you have trouble paying your heating and electricity bill?: Yes Do you have trouble taking care of your child, family member or friend?: Yes Do you have trouble with day-to-day activities such as bathing, preparing meals, shopping, managing finances, etc.?: I choose not to answer this question Are you currently unemployed and looking for a job?: No Are you interested in more education?: Yes Please select the resources that you would like help with: Utilities Currently or been in a relationship where the following occur: I choose not to answer THRIVE Score: 2 AUDIT C Alcohol Use Questionnaire (AUDIT-C) 1. How often do you have a drink containing alcohol?: Never 3. How often do you have six or more drinks on one occasion?: Never Total Score: 0 Score Reviewed/Action Taken: Yes ISAAC-7 AMB Questionnaire ISAAC-7 Date ISAAC - 7 assessed: 05/21/24 Feeling nervous, anxious, or on edge: 3 = Nearly every day Not being able to stop or control worryin = Nearly every day Worrying too much about different things: 3 = Nearly every day Trouble relaxin = Nearly every day Being so restless that it is hard to sit still: 3 = Nearly every day Becoming easily annoyed or irritable: 3 = Nearly every day Feeling afraid as if something awful might happen: 0 = Not at all Total ISAAC-7 score (0-4 normal; 5-9 mild; 10-14 moderate; 15-21 severe): 18 Source: Developed by Drs. Apolinar Green, Princess Greco, Horacio Gifford and colleagues, with an educational joaquin from [employer]. ISAAC-7 Assessment Billing ISAAC-7 Assessment Tool: ISAAC-7 Assessment 79702 Review of Systems Const Denies chills and Denies fever(s) ENT Denies epistaxis and Denies nasal discharge Card Denies chest pain Resp Denies chest congestion, Denies cough and Denies hemoptysis GI Denies diarrhea and Denies nausea Skin/Breast Denies rash Neuro Reports no additional complaints Psych Reports no additional complaints Endo Reports no additional complaints Physical exam (Primary Care) Vital Signs: Last Vital Signs Pulse 79 05/21/24 13:42 BP 124/86 05/21/24 13:42 Pulse Ox 97 05/21/24 13:42 Oxygen Delivery Method Room Air 05/21/24 13:42 BMI result Body Mass Index 31.2 Tobacco/Smoking Status: Tobacco use Status Tobacco use date assessed 05/21/24 05/21/24 13:45 Patient Tobacco Use Status Never used Tobacco 05/21/24 13:45 e-Cigarette/Vaping Use Never Used 05/21/24 13:45 PHQ-9: PHQ-9 Score PHQ-9: Total score 14 05/21/24 14:19 Depression Screening Interpretation: Positive Depression Screening Follow-up: Existing condition, New Medication prescribed and Follow-up Visit Requested Thrive Assessment: Date of Thrive Assessment Date Thrive assessed 05/21/24 05/21/24 13:45 Currently or been in a relationship where the following occur: I choose not to answer Const General: cooperative, comfortable and no acute distress Orientation/consciousness: patient oriented x3 HENMT Head: Yes normocephalic Eyes General: appearance normal, both eyes and all related structures Neck Neck: Yes supple Resp Effort & Inspection: normal respiratory effort, no cough and no stridor Cardio Rhythm: regular rhythm Heart sounds: S1 normal heart sound present and S2 normal heart sound present Skin General skin exam: turgor normal Neuro General: patient oriented x3, tone normal and moves all extremities Extrem Right lower extremity: no edema Left lower extremity: no edema Coding Level of Care Code Est Pt Level 5 (44250) Complex EM visit Add On G2211 Diagnoses Anxiety, generalized F41.1 Diabetes 1.5, managed as type 2 E13.9 Class 1 obesity due to excess calories with serious comorbidity and body mass index (BMI) of 31.0 to 31.9 in adult E66.811; E66.09; Z68.31 Body mass index: BMI 31.0-31.9 Obesity classification: adult class 1 (BMI 30 - 34.9) Serious obesity comorbidity presence: with serious comorbidity Difficulty sleeping G47.9 Hypertension, essential I10 Persistent proteinuria R80.1 Proteinuria type: persistent Palpitation R00.2 Additional Codes ISAAC-7 Assessment Billing - ISAAC-7 Assessment Tool: ISAAC-7 Assessment 19152 ([id number]) Assessment & Plan Assessment & Plan (1) Anxiety, generalized: Code(s): F41.1 - Generalized anxiety disorder Category: Medical (2) Diabetes 1.5, managed as type 2: Code(s): E13.9 - Other specified diabetes mellitus without complications Category: Medical (3) Obesity due to excess calories: Code(s): E66.09 - Other obesity due to excess calories Category: Medical Qualifiers: Body mass index: BMI 31.0-31.9 Obesity classification: adult class 1 (BMI 30 - 34.9) Serious obesity comorbidity presence: with serious comorbidity Qualified Code(s): E66.811 - Obesity, class 1; E66.09 - Other obesity due to excess calories; Z68.31 - Body mass index [BMI] 31.0-31.9, adult (4) Difficulty sleeping: Code(s): G47.9 - Sleep disorder, unspecified Category: Medical (5) Hypertension, essential: Code(s): I10 - Essential (primary) hypertension Category: Medical (6) Proteinuria: Code(s): R80.9 - Proteinuria, unspecified Category: Medical Qualifiers: Proteinuria type: persistent Qualified Code(s): R80.1 - Persistent proteinuria, unspecified (7) Palpitation: Code(s): R00.2 - Palpitations Category: Medical Plan Patient is a 49-year-old female Who also sees endocrinology for the management of diabetes And nephrology for nephropathy Labs done at [facility] - [place], [place] reviewed, ordered by solar installer They were done on 04/22/2024 LDL is 121 Electrolytes within normal limit Liver enzymes within normal limit Creatinine 0.7 GFR more than 60 TSH 1.41 Hemoglobin A1c 8.5% She is on Mounjaro through endocrinology Patient says that it is not controlling her sugar She would like to go on Wegovy for weight loss Notify patient that she should not take Mounjaro and the COVID together She said that she would like to stop Mounjaro and start Wegovy I have sent script after reviewing the side effects of Risk of pancreatic and thyroid cancer, nausea vomiting gastroparesis Patient already have a diagnosis of gastroparesis in medical problem However she is not having any digestive issues at this time or any nausea or vomiting She does admit to feeling stressed, and her blood pressure fluctuate up and down She agreed to start small dose of Lexapro today I have sent 10 mg tablet Patient is to take half a tablet for 3 days and then full tablet She was also instructed not to start Lexapro and Wegovy together Take Lexapro for a week and then if she tolerates it she may add Wegovy after. She also agreed to come back in 4 weeks to have a follow-up visit 45 minutes spent in care of this patient Medications: New escitalopram oxalate (Lexapro) 10 mg PO DAILY 30 tabs 0RF 30 days semaglutide for 4 weeks 0.25 mg (0.368 mL) subcut QWEEK 2 mL 0RF 30 days E13.9 - Other specified diabetes mellitus without complications, E66.09 - Other obesity due to excess calories, I10 - Essential (primary) hypertension, R00.2 - Palpitations, R80.9 - Proteinuria, unspecified
== END 2024-05-21 14:14 | disposition home or self-care (01) ==
PROVIDERS: PCP Internal Medicine; Visit Provider Internal Medicine
DX: E13.9 Other specified diabetes mellitus without complications (principal); E66.09 Other obesity due to excess calories; Z68.31 Body mass index [BMI] 31.0-31.9, adult; F41.1 Generalized anxiety disorder; E66.811 Obesity, class 1; G47.9 Sleep disorder, unspecified; I10 Essential (primary) hypertension; R80.1 Persistent proteinuria, unspecified; R00.2 Palpitations

== ENCOUNTER → 2024-05-21 13:38 | Outpatient (BNVA) | payer OTHER, SELFPAY | PROVIDERS: PCP Internal Medicine; Visit Provider Internal Medicine | DX: F41.1 Generalized anxiety disorder (principal); E13.9 Other specified diabetes mellitus without complications; E66.09 Other obesity due to excess calories; Z68.31 Body mass index [BMI] 31.0-31.9, adult; G47.9 Sleep disorder, unspecified; I10 Essential (primary) hypertension; R80.1 Persistent proteinuria, unspecified; R00.2 Palpitations; Z71.3 Dietary counseling and surveillance | CPT/HCPCS: 96127; 99212 ==

== ENCOUNTER 2025-04-29 13:08 | Outpatient (AMB) | payer OTHER, SELFPAY ==
[2025-04-29 13:14] VITALS: BP 120/78; PULSE 80; O2SAT 98; BMI 31.8
--- NOTE | 2025-04-29 13:14 | MHC.PC.OV ---
Vital Signs 04/29/25 13:14 Height 5 ft 6 in Weight 197 lb BMI 31.8 BP 120/78 Blood Pressure Location Lt brachial Position Sitting Pulse 80 Pulse Source Pulse Oximeter Pulse Oximetry (%) 98 Intake Visit Reasons: general health Allergies iron dextran complex (IRON DEXTRAN COMPLEX) Allergy (Severe, Verified 04/29/25 13:14) ANGIOEDEMA morphine (MORPHINE) Allergy (Unknown, Verified 04/29/25 13:14) ITCHING; GENERALIZED BURNING SENSATION, rash, rash lisinopril Adverse Reaction (Unknown, Verified 04/29/25 13:14) cough Iron Allergy (Unknown, Uncoded 12/11/23 10:04) unknown Pt states no known allergy to Allergy (Unknown, Uncoded 12/11/23 10:04) unknown Medication List - Last Reconciled 04/29/25 by Chelsea Mascorro MD atorvastatin 40 mg PO BEDTIME escitalopram oxalate (Lexapro) 10 mg PO DAILY 30 days losartan 50 mg PO DAILY metformin 1,000 mg PO DAILY omeprazole 40 mg PO DAILY 90 days semaglutide 0.25 mg (0.368 mL) subcut QWEEK 30 days tirzepatide (Mounjaro) 5 mg subcut QWEEK valacyclovir 500 mg PO DAILY 90 days Tobacco use date assessed: 04/29/25 Dental Screening Dental Screen Date: 04/29/25 Did you have a dental visit in the last 12 months?: Yes Did you have a dental problem in the last 6 months where you did not have access to dental care?: No Was dental information given to patient?: Patient has dentist HPI general health HPI Details History The patient is a 50-year-old female presenting with worsening neuropathy and tension headaches. Neuropathy: - The patient reports significant tingling in her feet, with a worsening intensity over time, impairing her ability to walk. - Neuropathy symptoms were first noted and tested in 2017 and again in 2019, 2017 was lower extremity test which was within normal limit - Gabapentin was previously prescribed but caused a severe allergic reaction, manifesting as facial swelling. - Lyrica was suggested but insurance coverage was not available. - Symptoms have progressively worsened as noted by decreased walking tolerance and increased pain limiting mobility to short distances. Patient has seen Dr. Jimenez in the past and is requesting a new referral to him, meanwhile I have also ordered EMG nerve conduction study to update the severity Tension Headaches: - Persistent tension-type headaches have been ongoing, creating discomfort and contributing to her condition. 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 - Reports not engaging in regular exercise due to busy schedule. - Has a daughter who is noted to be grown up. Problem List - Peripheral neuropathy - Tension headaches - Obstructive sleep apnea - Arthritis - muscle cramping - diabetes mellitus Established with endocrinology for the management of diabetes and cholesterol Patient Instructions - Schedule and complete updated neuropathy testing as ordered. - Arrange a neurology appointment for tension headaches and neuropathy management. - Increase fluid intake to potentially alleviate cramping. - Arrange for further blood tests for vitamin and electrolyte levels to be done. - Book a physical exam appointment within next three months. Telemedicine visit in 7-10 days to go over lab report and discuss muscle cramping Review of Systems General: No fever no chills neurological: No headaches no dizziness ear nose throat: No sore throat no hearing difficulty no ear pain cardiovascular: No syncope, no chest pain, no palpitations gastrointestinal: No nausea vomiting or diarrhea endocrine: No polyuria polydipsia no heat intolerance genitourinary: No dysuria skin: No new complaints Physical Exam general: No acute distress HEENT: No acute findings neck: Supple respiratory system: Able to talk in full sentences, no audible wheeze no stridor cardiovascular: S1-S2 RRR gastrointestinal: No pain extremities: Tingling in feet, pain in knees, arthritis in knees and shoulders COOLING TOWER OPERATOR: Alert awake oriented x3 motor intact skin: Normal turgor [facility] Medical History Elevated vitamin B12 level Diabetes 1.5, managed as type 2 Exposure to COVID-19 virus Epigastric pain Obesity Surgical History H/O abdominoplasty Family History Mother Diabetes Father Diabetes Social History Household Members: Children and None Housing: Condominium Alcohol intake: current Alcohol intake frequency: holidays/special occasions only Patient Tobacco Use Status: Never used Tobacco e-Cigarette/Vaping Use: Never Used Current occupational status: unemployed Cognitive needs: No Hearing needs: No Vision needs: No Questionnaire PHQ-9 Over the last 2 weeks, how often have you been bothered by any of the following problems? 1. Little interest or pleasure in doing things: not at all 2. Feeling down, depressed, or hopeless: not at all 3. Trouble falling or staying asleep, or sleeping too much: not at all 4. Feeling tired or having little energy: not at all 5. Poor appetite or overeating: not at all 6. Feeling bad about yourself - or that you are a failure or have let yourself or your family down: not at all 7. Trouble concentrating on things, such as reading the newspaper or watching television: not at all 8. Moving or speaking so slowly that other people could have noticed. Or the opposite - being so fidgety or restless that you have been moving around a lot more than usual: not at all 9. Thoughts that you would be better off or of hurting yourself in some way: not at all Total score: 0 Depression Screening Interpretation: Negative Depression Screening Done: Yes 15790 - PHQ-9 Billing: Yes Source: Developed by Drs. Apolinar Green, Princess Greco, Horacio Gifford and colleagues, with an educational joaquin from [employer]. Thrive Questionnaire Date Thrive assessed: 04/29/25 I am a: Patient What is your living situation today?: I have a steady place to live Within the past 12 months, did the food you bought not last and you didn't have the money to get more?: Often true Within the past 12 months, did you worry whether your food would run out before you got money to buy more?: Often true Do you have trouble paying for medicines?: I choose not to answer this question Do you have trouble getting transportation to medical appointments?: I choose not to answer this question Do you have trouble paying your heating and electricity bill?: I choose not to answer this question Do you have trouble taking care of your child, family member or friend?: I choose not to answer this question Do you have trouble with day-to-day activities such as bathing, preparing meals, shopping, managing finances, etc.?: I choose not to answer this question Are you currently unemployed and looking for a job?: I choose not to answer this question Are you interested in more education?: I choose not to answer this question Please select the resources that you would like help with: None Currently or been in a relationship where the following occur: I choose not to answer THRIVE Score: 2 AUDIT C Alcohol Use Questionnaire (AUDIT-C) 1. How often do you have a drink containing alcohol?: Never 3. How often do you have six or more drinks on one occasion?: Never Total Score: 0 Score Reviewed/Action Taken: Yes ISAAC-7 AMB Questionnaire ISAAC-7 Date ISAAC - 7 assessed: 04/29/25 Feeling nervous, anxious, or on edge: 0 = Not at all Not being able to stop or control worryin = Not at all Worrying too much about different things: 0 = Not at all Trouble relaxin = Not at all Being so restless that it is hard to sit still: 0 = Not at all Becoming easily annoyed or irritable: 0 = Not at all Feeling afraid as if something awful might happen: 0 = Not at all Total ISAAC-7 score (0-4 normal; 5-9 mild; 10-14 moderate; 15-21 severe): 0 Source: Developed by Drs. Apolinar Green, Princess Greco, Horacio Gifford and colleagues, with an educational joaquin from [employer]. ISAAC-7 Assessment Billing ISAAC-7 Assessment Tool: ISAAC-7 Assessment 10526 Physical exam (Primary Care) Vital Signs: Last Vital Signs Pulse 80 04/29/25 13:14 BP 120/78 04/29/25 13:14 Pulse Ox 98 04/29/25 13:14 BMI result Body Mass Index 31.8 Tobacco/Smoking Status: Tobacco use Status Tobacco use date assessed 04/29/25 04/29/25 13:15 Patient Tobacco Use Status Never used Tobacco 04/29/25 13:15 e-Cigarette/Vaping Use Never Used 04/29/25 13:15 PHQ-9: PHQ-9 Score PHQ-9: Total score 0 04/29/25 13:40 Depression Screening Interpretation: Negative Thrive Assessment: Date of Thrive Assessment Date Thrive assessed 04/29/25 04/29/25 13:15 Currently or been in a relationship where the following occur: I choose not to answer Coding Level of Care Code Est Pt Level 4 (21411) Diagnoses Paresthesia of both lower extremities R20.2 Nonintractable headache, unspecified chronicity pattern, unspecified headache type R51.9 Headache chronicity pattern: unspecified pattern Headache type: unspecified Intractability: not intractable Muscle cramping R25.2 Elevated vitamin B12 level R74.8 Diabetes 1.5, managed as type 2 E13.9 Class 1 obesity due to excess calories with serious comorbidity and body mass index (BMI) of 31.0 to 31.9 in adult E66.811; E66.09; Z68.31 Obesity classification: adult class 1 (BMI 30 - 34.9) Serious obesity comorbidity presence: with serious comorbidity Body mass index: BMI 31.0-31.9 Additional Codes ISAAC-7 Assessment Billing - ISAAC-7 Assessment Tool: ISAAC-7 Assessment 84219 ([id number]) PHQ-9 - 27373 - PHQ-9 Billing: Yes ([id number]) Assessment & Plan Assessment & Plan (1) Paresthesia of both lower extremities: Code(s): R20.2 - Paresthesia of skin Category: Medical (2) Headache: Comment: Patient's blood pressure normal at appointment today. Patient had EKG. Will give patient meloxicam. Patient has been instructed to keep taking losartan as prescribed daily. Patient has been educated on signs of worsening symptoms and when to return to the walk-in or when to present to the ED. Code(s): R51.9 - Headache, unspecified Category: Medical Qualifiers: Headache chronicity pattern: unspecified pattern Headache type: unspecified Intractability: not intractable Qualified Code(s): R51.9 - Headache, unspecified (3) Muscle cramping: Code(s): R25.2 - Cramp and spasm Category: Medical (4) Elevated vitamin B12 level: Code(s): R74.8 - Abnormal levels of other serum enzymes Category: Medical (5) Diabetes 1.5, managed as type 2: Code(s): E13.9 - Other specified diabetes mellitus without complications Category: Medical (6) Obesity due to excess calories: Code(s): E66.09 - Other obesity due to excess calories Category: Medical Qualifiers: Obesity classification: adult class 1 (BMI 30 - 34.9) Serious obesity comorbidity presence: with serious comorbidity Body mass index: BMI 31.0-31.9 Qualified Code(s): E66.811 - Obesity, class 1; E66.09 - Other obesity due to excess calories; Z68.31 - Body mass index [BMI] 31.0-31.9, adult Plan History The patient is a 50-year-old female presenting with worsening neuropathy and tension headaches. Neuropathy: - The patient reports significant tingling in her feet, with a worsening intensity over time, impairing her ability to walk. - Neuropathy symptoms were first noted and tested in 2017 and again in 2019, 2017 was lower extremity test which was within normal limit - Gabapentin was previously prescribed but caused a severe allergic reaction, manifesting as facial swelling. - Lyrica was suggested but insurance coverage was not available. - Symptoms have progressively worsened as noted by decreased walking tolerance and increased pain limiting mobility to short distances. Patient has seen Dr. Jimenez in the past and is requesting a new referral to him, meanwhile I have also ordered EMG nerve conduction study to update the severity Tension Headaches: - Persistent tension-type headaches have been ongoing, creating discomfort and contributing to her condition. 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 - Reports not engaging in regular exercise due to busy schedule. - Has a daughter who is noted to be grown up. Problem List - Peripheral neuropathy - Tension headaches - Obstructive sleep apnea - Arthritis - muscle cramping - diabetes mellitus Established with endocrinology for the management of diabetes and cholesterol Patient Instructions - Schedule and complete updated neuropathy testing as ordered. - Arrange a neurology appointment for tension headaches and neuropathy management. - Increase fluid intake to potentially alleviate cramping. - Arrange for further blood tests for vitamin and electrolyte levels to be done. - Book a physical exam appointment within next three months. Telemedicine visit in 7-10 days to go over lab report and discuss muscle cramping Orders: Orders TSH reflex Free T4 Today R20.2 - Paresthesia of skin, R25.2 - Cramp and spasm, R51.9 - Headache, unspecified, R74.8 - Abnormal levels of other serum enzymes Complete Blood Count Auto Diff Today R20.2 - Paresthesia of skin, R25.2 - Cramp and spasm, R51.9 - Headache, unspecified, R74.8 - Abnormal levels of other serum enzymes Comprehensive Met. Panel Today R20.2 - Paresthesia of skin, R25.2 - Cramp and spasm, R51.9 - Headache, unspecified, R74.8 - Abnormal levels of other serum enzymes Vitamin D 25-OH (D2 and D3) Today R20.2 - Paresthesia of skin, R25.2 - Cramp and spasm, R51.9 - Headache, unspecified, R74.8 - Abnormal levels of other serum enzymes NE nerve conduction velocity Today R20.2 - Paresthesia of skin NE electromyogram (EMG) Today R20.2 - Paresthesia of skin Ferritin Today R20.2 - Paresthesia of skin, R25.2 - Cramp and spasm, R51.9 - Headache, unspecified, R74.8 - Abnormal levels of other serum enzymes Folate Today R20.2 - Paresthesia of skin, R25.2 - Cramp and spasm, R51.9 - Headache, unspecified, R74.8 - Abnormal levels of other serum enzymes Magnesium Today R20.2 - Paresthesia of skin, R25.2 - Cramp and spasm, R51.9 - Headache, unspecified, R74.8 - Abnormal levels of other serum enzymes Vitamin B12 Today R20.2 - Paresthesia of skin, R25.2 - Cramp and spasm, R51.9 - Headache, unspecified, R74.8 - Abnormal levels of other serum enzymes Referrals Neurology Referral R20.2 - Paresthesia of skin, R51.9 - Headache, unspecified
--- OUTSIDE RECORDS SUMMARY | 2025-04-29 16:09 | XMS_ITS | Clinical Summary ---
Author Organization [facility] Facility Address [address] [address] Care Team Providers Care Furnace Filler Name Role Phone Moe Ruiz MD Primary Care Provider [phone] Allergies Active Allergy Reactions Criticality Noted Date Comments Getachew Inhibitors Other (see comments) 12/30/2020 Morphine Other (see comments) 07/23/2020 Medications metFORMIN (GLUCOPHAGE) 1000 MG tablet Take 1 tablet by mouth 2 (two) times a day Active omeprazole (PriLOSEC) [address] capsule Take 1 capsule by mouth 1 (one) time each day Active zolpidem (AMBIEN) 10 MG tablet 01/03/2015 Active Semaglutide, 1 MG/DOSE, (Ozempic, 1 MG/DOSE,) 4 MG/3ML solution pen-injector Inject under the skin Active atorvastatin (LIPITOR) 40 MG tablet Take 40 mg by mouth 1 (one) time each day Active losartan (COZAAR) 50 MG tablet Take 1 tablet (50 mg total) by mouth 1 (one) time each day 90 tablet 3 07/12/2022 Active Active Problems Problem Noted Date Diagnosed Date Obese class I 07/23/2023 07/23/2023 Diabetes mellitus 07/12/2022 History of chronic renal impairment 12/30/2020 Proteinuria 12/30/2020 Renal disorder due to type 2 diabetes mellitus 0 12/30/2020 Immunizations Immunization Administration Dates Next Due Tdap 04/23/2016,04/19/2016 Family History Medical History Relation Comments Diabetes Father Heart disease Father Hypertension Father Diabetes Mother Hypertension Mother Relation Status Comments Father Unknown Mother Unknown Social History Tobacco Use Types Packs/Day Years Used Date Smoking Tobacco: Never Smokeless Tobacco: Never Tobacco Cessation:Counseling Given: Not Answered Alcohol Use Standard Drinks/Week Comments No 0 (1 standard drink = 0.6 oz pur e alcohol) Comments Unknown Sex and Gender Information Value Date Recorded Sex Assigned at Not on file Legal Sex Female 5:11 PM EST Gender Identity Not on file Sexual Orientation Not on file Last Filed Vital Signs Vital Sign Reading Time Taken Comments Blood Pressure 100/60 07/12/2022 10:18 AM EST Pulse 75 03/17/2019 12:00 PM EDT Temperature - - Respiratory Rate - - Oxygen Saturation 94% 03/17/2019 12:00 PM EDT Inhaled Oxygen Concentration - - Weight 90.8 kg (200 lb 3.2 oz) 07/12/2022 10:18 AM EST Height 167.6 cm (5' 6 ) 07/12/2022 10:18 AM EST Body Mass Index 32.31 07/12/2022 10:18 AM EST Plan of Treatment Health Maintenance Due Date Last Done Comments Hepatitis B Vaccine (1 of 3 - 19+ 3-dose series) 1995 Diabetes: Ophthalmology Exam 09/20/2020 Diabetes: Pedal Pulse Checked 09/20/2020 Diabetes: Sensory Foot Exam 09/20/2020 Diabetes: Visual Foot Exam 09/20/2020 Diabetes: Hemoglobin A1C 11/26/2021 022, 07/14/2020, 10/16/2019, Additional history exists Colorectal Cancer Screening: Annual FOBT 2025 Colorectal Cancer Screening: Colonoscopy 2025 Colorectal Cancer Screening: Sigmoidoscopy 2025 Influenza Vaccine (#1) 2025 Pneumococcal Vaccine: Peds (0 to 5 Years) and At-Risk Patients (6 to 49 Years) Aged Out No longer eligi ble based on patient's age to complete this topic Procedures Procedure Name Priority Date/Time Associated Diagnosis Comments BLOOD PANEL (HC) Routine 07/14/2020 12:0 0 AM EST from Last 3 Months or Most Recently Relevant to Health Maintenance Results * (ABNORMAL) Blood Panel (07/14/2020 12:00 AM EST) Calcium 9.3 8.4 - 10.2 mg/dl [facility] HDL 56 >40 mg/dl [facility] LDL,Direct 133(H) <130 mg/dl [facility] Hemoglobin A1C 7.0(H) <5 % [facility] Potassium 4.4 3.5 - 5.1 mmol/L [facility] Sodium 134(L) 137 - 145 mmol/L [facility] Triglycerides 146 <150 mg/dl [facility] Hgb 12.4(L) 13.0 - 16.5 g/dl [facility] Hematocrit 38.4 38 - 50 % [facility] BUN 7(L) 9 - 20 mg/dl [facility] Creatinine 0.71 0.70 - 1.30 mg/dl [facility] Cholesterol 218(H) <200 mg/dl [facility] 07/14/2020 us [facility] [id number] LICITED RESULTS Final Result [facility] from Last 3 Months or Most Recently Relevant to Health Maintenance Insurance Medicaid Care Teams Furnace Filler Relationship Specialty Start Date End Date Moe Ruiz MD [address] [place] [id number] PCP - General 08/30/20
--- OUTSIDE RECORDS SUMMARY | 2025-04-29 16:09 | XMS_ITS | Encounter Summary ---
Author Organization [facility] Address [address] [place] [id number] Phone Care Team Providers Care Online Trader Name Role Phone Chelsea Mascorro MD Primary Care Provider [phone] Encounter Details Date Type Department Care Team (Late st Contact Info) Description 03/28/2022 Procedure Pass [facility], Ct Scan - [address] [address] Social History Tobacco Use Types Packs/Day Years Used Date Smoking Tobacco: Never Smokeless Tobacco: Never Alcohol Use Standard Drinks/Week Comments Never 0 (1 standard drink = 0.6 oz pur e alcohol) Comments Unknown Sex and Gender Information Value Date Recorded Sex Assigned at Female 07/23/2020 1:25 PM EST Legal Sex Female 7:32 PM EST Gender Identity Female 07/23/2020 1:25 PM EST Sexual Orientation Straight 07/23/2020 1: 25 PM EST documented as of this encounter Functional Status * Calculated C-SSRS Risk Score (Lifetime/Recent) Answer Date of Assessment Author No Risk Indicated 03/28/2022 11:43 AM Silvia Stahl RN * [place] Suicide Severity Rating Scale (Screener/Recent Self-Report) Question Answer Date of Assessment Author 1. Wish to be (Past 1 Month) No 022 11:43 AM Silvia Lee, RAFAL 2. Non-Specific Active Suici steve Thoughts (Past 1 Month) No 03/28/2022 11:43 AM Silvia Lee, RAFAL 6. Suicidal Behavior (Lifetime) No 11:43 AM Silvia Lee, RAFAL documented as of this encounter Plan of Treatment Not on file documented as of this encounter Visit Diagnoses Not on filedocumented in this encounter Care Teams Online Trader Relationship Specialty Start Date End Date Chelsea Mascorro MD [facility] [place] [address] PCP - General Internal Medicine 07/23/20 documented as of this encounter Additional Source Comments The information contained in this document represents components of the legal health record. It is not the complete legal health record.[facility]
--- OUTSIDE RECORDS SUMMARY | 2025-04-29 16:09 | XMS_ITS | Clinical Summary ---
Author Organization [facility] Address [address] [address] Phone Care Team Providers Care Specialist Physicians Name Role Phone Chelsea Mascorro MD Primary Care Provider [phone] Allergies Active Allergy Reactions Criticality Noted Date Comments Morphine 07/23/2020 Medications metFORMIN (GLUCOPHAGE) 1000 MG tablet Take 1,000 mg by mouth 2 (two) times a day with meals. Active atorvastatin (LIPITOR) 40 MG tablet Take 40 mg by mouth daily. Active Social History Tobacco Use Types Packs/Day Years Used Date Smoking Tobacco: Never Smokeless Tobacco: Never Alcohol Use Standard Drinks/Week Comments Never 0 (1 standard drink = 0.6 oz pur e alcohol) Education Answer Date Recorded Are you interested in more education? Not on shadi e 12/14/2022 Are you concerned about learning? Not on file 12/14/2022 No 12/14/2022 No 12/14/2022 Digital Access Answer Date Recorded No 01/15/2023 No 01/15/2023 No 01/15/2023 Reliable internet access at home? Not on file 01/15/2023 Device with a working camera? Not on file Comments Unknown Sex and Gender Information Value Date Recorded Sex Assigned at Female 07/23/2020 1:25 PM EST Legal Sex Female 7:32 PM EST Gender Identity Female 07/23/2020 1:25 PM EST Sexual Orientation Straight 07/23/2020 1: 25 PM EST Last Filed Vital Signs Vital Sign Reading Time Taken Comments Blood Pressure 141/86 03/28/2022 2:14 PM EDT Pulse 73 03/28/2022 2:14 PM EDT Temperature 36.4 C (97.5 F) 03/28/2022 11:41 AM EDT Respiratory Rate 18 03/28/2022 2:14 PM EDT Oxygen Saturation 99% 03/28/2022 2:14 PM EDT Inhaled Oxygen Concentration - - Weight 88.9 kg (196 lb) 03/28/2022 11:41 AM EDT Height 167.6 cm (5' 6 ) 03/28/2022 11:41 AM EDT Body Mass Index 31.64 03/28/2022 11:41 AM EDT Plan of Treatment Not on file Medical Devices Not on file Insurance ACO ACO ACO Care Teams Specialist Physicians Relationship Specialty Start Date End Date Chelsea Mascorro MD [address] [place] [address] [place] [address] PCP - General Internal Medicine 07/23/20 Additional Source Comments The information contained in this document represents components of the legal health record. It is not the complete legal health record.[facility]
--- OUTSIDE RECORDS SUMMARY | 2025-04-29 16:09 | XMS_ITS | Clinical Summary ---
Author Organization [facility] ity Address [address] [place] [address] Care Team Providers Care Aerospace Stress Engineer Name Role Phone Chelsea Mascorro MD Primary Care Provider Social History Tobacco Use Types Packs/Day Years Used Date Smoking Tobacco: Never Assessed Comments Unknown Sex and Gender Information Value Date Recorded Sex Assigned at Not on file Legal Sex Female 4:42 AM EST Gender Identity Not on file Sexual Orientation Not on file Obstetrics History Plan of Treatment Health Maintenance Due Date Last Done Comments Breast Cancer Screening 1976 DTaP,Tdap,and Td Vaccines (1 - Tdap) 1995 Hepatitis B Vaccines (1 of 3 - 19+ 3-dose series) 1995 Cervical Cancer Screening: P ap Smear 1997 Colorectal Cancer Screening: Colonoscopy 09/18/2023 HIV Screening 09/18/2023 Hepatitis C Screening 09/18/2023 Social Influencers of Health Screening 09/18/2023 Depression Screening 08/20/2024 COVID-19 Vaccine ( - 2023-2 5 season) 2025 Influenza Vaccine (#1) 2025 HIB Vaccines Aged Out No longer eligi ble based on patient's age to complete this topic HPV Vaccines Aged Out No longer eligi ble based on patient's age to complete this topic Hepatitis A Vaccines Aged Out No long er eligible based on patient's age to complete this topic IPV Vaccines Aged Out No longer eligi ble based on patient's age to complete this topic MMR Vaccines Aged Out No longer eligi ble based on patient's age to complete this topic Meningococcal ACWY Vaccine Aged Out N o longer eligible based on patient's age to complete this topic Meningococcal B Vaccine Aged Out No l onger eligible based on patient's age to complete this topic Pneumococcal Vaccine: Pediat rics (0 to 5 Years) and At-Risk Patients (6 to 49 Years) Aged Out No longer eligible b ased on patient's age to complete this topic RSV Immunization Patients Un nora 20 months Aged Out No longer eligible b ased on patient's age to complete this topic Varicella Vaccines Aged Out No longer eligible based on patient's age to complete this topic Care Teams Aerospace Stress Engineer Relationship Specialty Start Date End Date Chelsea Mascorro MD [address] [place] [address] PCP - General 08/14/15
--- OUTSIDE RECORDS SUMMARY | 2025-04-29 16:09 | XMS_ITS | Clinical Summary ---
Author Organization [facility] Address [address] [place] [address] Care Team Providers Care Primary School Teacher Name Role Phone Unavailable Primary Care Provider Unavailabl e Medications No known medications Active Problems No known active problems Social History Tobacco Use Types Packs/Day Years Used Date Smoking Tobacco: Never Assessed Sex and Gender Information Value Date Recorded Sex Assigned at Female 12/05/2023 4:12 AM EDT Gender Identity Female 12/05/2023 4:12 AM EDT Sexual Orientation Not on file Job Start Date Occupation Industry Not on file Not on file Not on file Last Filed Vital Signs Vital Sign Reading Time Taken Comments Blood Pressure 167/84 12/05/2023 4:15 AM EDT Pulse 68 12/05/2023 4:15 AM EDT Temperature 36.9 C (98.4 F) 12/05/2023 1:35 AM EDT Respiratory Rate 18 12/05/2023 4:15 AM EDT Oxygen Saturation 97% 12/05/2023 4:15 AM EDT Inhaled Oxygen Concentration - - Weight 86.2 kg (190 lb) 12/05/2023 1:35 AM EDT Height 167.6 cm (5' 6 ) 12/05/2023 1:35 AM EDT Body Mass Index 30.67 12/05/2023 1:35 AM EDT Plan of Treatment Not on file
--- OUTSIDE RECORDS SUMMARY | 2025-04-29 16:09 | XMS_ITS | Encounter Summary ---
Author Organization [facility] Address [address] [place] [address] Phone Care Team Providers Care Animal Sitter Name Role Phone Chelsea Mascorro MD Primary Care Provider [phone] Encounter Details Date Type Department Care Team (Late st Contact Info) Description 07/23/2020 Procedure Pass [facility], Ct Scan - [facility] [address] [place] [address] Social History Tobacco Use Types Packs/Day Years [...] Date of Assessment Author No Risk Indicated 07/23/2020 3:33 PM EST Selena Sutherland RN * [place] Suicide Severity Rating Scale (Screener/Recent Self-Report) Question Answer Date of Assessment Author 1. Wish to be (Past 1 Month) No 07/23/2020 3:33 PM EST Selena Linares RN 2. Non-Specific Active Suici steve Thoughts (Past 1 Month) No 07/23/2020 3:33 PM EST Delmis Linares RN 6. Suicidal Behavior (Lifetime) No 0 3:33 PM Selena Oleary RN documented as of this encounter Plan of Treatment Not on file documented as of this encounter Visit Diagnoses Not on filedocumented in this encounter Care Teams Animal Sitter Relationship Specialty Start Date End Date Chelsea Mascorro MD [facility] [address] PCP - General Internal Medicine 07/23/20 documented as of this encounter Additional Source Comments The information contained in this document represents components of the legal health record. It is not the complete legal health record.[facility]
--- OUTSIDE RECORDS SUMMARY | 2025-04-29 16:09 | XMS_ITS ---
Author Name [facility] Organization Unknown History of Medication Use Medication Directions Dispensed Refills Start Date End Date Stat metoclopramide (REGLAN) injection 10 mg 10 mg, Intravenous, Once, On Sun12/05/23 at 0230, For 1 dose 12/05/2023 12/05/2023 completed sodium chloride 0.9% bolus (NS) 1,000 mL 1,000 mL, Intravenous, at 1,000 mL/hr, Once, On Sun12/05/23 at 0230, For 1 dose 12/05/2023 12/05/2023 completed Problems Problem Status Onset Date Problem Type Date of Resoluti on Source Hypertension active [facility] Headache active En[facility]DiagnosisAct [facility] Encounters Encounter Type Encounter Reason Primary Diagnosis Location Date Emergency Headache, unspecified Headache, unspecified [facility] 12/05/2023 Care Team Organization Name Specialty Phone Email Start Date End Da gold [facility] 202303/03/2025 [facility] 12/05/2023
== END 2025-04-29 13:44 | disposition home or self-care (01) ==
LOC: HO.HMCC 13:08
PROVIDERS: PCP Internal Medicine; Visit Provider Internal Medicine
DX: R20.2 Paresthesia of skin (principal); E13.9 Other specified diabetes mellitus without complications; E66.811 Obesity, class 1; Z68.31 Body mass index [BMI] 31.0-31.9, adult; R51.9 Headache, unspecified; R25.2 Cramp and spasm; R74.8 Abnormal levels of other serum enzymes

== ENCOUNTER 2025-04-29 13:08 | Outpatient (REF) | payer OTHER, SELFPAY ==
[2025-04-29 16:18] LABS: MANUAL DIFF FLAG NO
[2025-04-29 16:29] LABS: Hematocrit 34.4 % (37.0-47.0); Hemoglobin 11.2 g/dl (12.0-16.0); Imm Gran Abs Auto 0.05 X10*3/uL (0.00-0.03); Imm Gran Pct Auto 0.5 % (0.0-0.4); Lymphocytes Absolute Auto 3.6 X10*3/uL (1.2-4.9); Mean Corpuscular HGB Conc 32.6 g/dl (31.0-35.0); Mean Corpuscular Hemoglobin 25.2 pg (27.0-33.0); Mean Corpuscular Volume 77.3 fL (80.0-98.0); NRBC Abs Auto 0.000 X10*3/uL (0.0-0.012); NRBC Pct Auto 0.0 /100WBC (0.0-0.2); Platelet Count 249 X10*3/uL (160-400); Red Blood Count 4.45 X10*6/uL (4.20-5.50); White Blood Count 10.8 X10*3/uL (4.8-10.8)
[2025-04-29 17:37] LABS: Alanine Aminotransferase 18 U/L (0-31); Albumin Level 4.1 g/dL (3.5-5.0); Alkaline Phosphatase 95 U/L (39-117); Anion Gap 11 (12-20); Aspartate Amino Transferase 23 U/L (5-31); Blood Urea Nitrogen 9 mg/dL (9-16); Calcium 8.9 mg/dL (8.4-10.2); Carbon Dioxide 27 mmol/L (22-29); Chloride 104 mmol/L (96-108); Estimated Glomerular Filt Rate > 60; Magnesium 1.8 mg/dL (1.6-2.6); Potassium 4.1 mmol/L (3.3-5.1); Sodium 138 mmol/L (135-145); Total Protein 7.3 g/dL (6.5-8.0)
[2025-04-29 17:46] LABS: Ferritin 44 ng/mL (10-250)
[2025-04-29 18:03] LABS: Folate 12.4 ng/mL (> or = 4.0); Vitamin B12 918 pg/mL (200-900)
[2025-05-03 15:12] LABS: Vitamin D 25-OH, D2 <4 ng/mL; Vitamin D 25-OH, D3 24 ng/mL; Vitamin D 25-OH, Total 24 ng/mL (30-100)
== END 2025-04-29 13:09 | disposition home or self-care (01) ==
LOC: HO.HMGCLDS 13:08
PROVIDERS: PCP Internal Medicine; Visit Provider Internal Medicine
DX: R25.2 Cramp and spasm (principal); R74.8 Abnormal levels of other serum enzymes; R20.2 Paresthesia of skin; R51.9 Headache, unspecified; E13.9 Other specified diabetes mellitus without complications; E66.811 Obesity, class 1; E66.09 Other obesity due to excess calories; Z79.84 Long term (current) use of oral hypoglycemic drugs; Z79.899 Other long term (current) drug therapy; Z79.85 Long-term (current) use of injectable non-insulin antidiabetic drugs; Z68.31 Body mass index [BMI] 31.0-31.9, adult
CPT/HCPCS: 36415; 80053; 82306; 82607; 82728; 82746; 83735; 84443; 85025; 96127; 99212

== ENCOUNTER 2025-04-30 13:56 | Outpatient (AMB) | payer OTHER, SELFPAY ==
[2025-04-30 13:58] VITALS: BP 118/80; PULSE 81; O2SAT 97; BMI 31.8
--- NOTE | 2025-04-30 13:58 | HO.NEPHOV_ITS ---
Vital Signs 04/30/25 13:58 Height 5 ft 6 in Weight 197 lb BMI 31.8 BP 118/80 Blood Pressure Location Lt brachial Position Sitting Pulse 81 Pulse Source Pulse Oximeter Pulse Oximetry (%) 97 Oxygen Delivery Method Room Air Intake Visit Reasons: R/S 02/16/2025-[facility] Seed Collector Required: No Accompanied by: Self / Same As Patient Allergies iron dextran complex (IRON DEXTRAN COMPLEX) Allergy (Severe, Verified 04/30/25 13:59) ANGIOEDEMA morphine (MORPHINE) Allergy (Unknown, Verified 04/30/25 13:59) ITCHING; GENERALIZED BURNING SENSATION, rash, rash lisinopril Adverse Reaction (Unknown, Verified 04/30/25 13:59) cough Iron Allergy (Unknown, Uncoded 12/11/23 10:04) unknown Pt states no known allergy to Allergy (Unknown, Uncoded 12/11/23 10:04) unknown Medication List - Last Reconciled 04/30/25 by Rony Robles MD atorvastatin 40 mg PO BEDTIME escitalopram oxalate (Lexapro) 10 mg PO DAILY 30 days losartan 100 mg PO DAILY metformin 1,000 mg PO DAILY omeprazole 40 mg PO DAILY 90 days semaglutide 0.25 mg (0.368 mL) subcut QWEEK 30 days tirzepatide (Mounjaro) 5 mg subcut QWEEK valacyclovir 500 mg PO DAILY 90 days HPI Comments Details: 50 year-old man with a history of longstanding diabetes mellitus obesity with proteinuria. She is here for annual follow-up. Today she has no new complaints. He has a history of renal stones who to diagnose in [place] about a year ago. She was on Ozempic. She has lost about 10-15 lb. She is unable to obtain Ozempic for the past 2 weeks due to shortage in the pharmacy. 04/30/25 Overall doing well. BP acceptable Occasional back pain h/o kidney stone- [facility] [place] Medical History Elevated vitamin B12 level Diabetes 1.5, managed as type 2 Exposure to COVID-19 virus Epigastric pain Obesity Surgical History H/O abdominoplasty Family History Mother Diabetes Father Diabetes Social History Household Members: Children and None Housing: Condominium Alcohol intake: current Alcohol intake frequency: holidays/special occasions only Patient Tobacco Use Status: Never used Tobacco e-Cigarette/Vaping Use: Never Used Current occupational status: unemployed Cognitive needs: No Hearing needs: No Vision needs: No Physical Exam Vital Signs: Last Vital Signs Pulse 81 04/30/25 13:58 BP 118/80 04/30/25 13:58 Pulse Ox 97 04/30/25 13:58 Oxygen Delivery Method Room Air 04/30/25 13:58 BMI result Body Mass Index 31.8 Const General: comfortable Nutritional Appearance: well nourished Orientation/consciousness: patient oriented x3 HEENT Head: No normal to inspection Mouth: moist mucous membranes Neck Neck: Yes supple and Yes no JVD Resp Auscultation: clear to auscultation bilaterally, no rales and rub present Cardio Jugular venous distension: no JVD Palpation: no palpable S3 and no palpable S4 Heart sounds: no rubs GI Palpation (GI): Soft to palpation and nontender Percussion: No Fluid wave present General: Yes no CVA tenderness Back/Spine/Pelvis Back: no CVA tenderness Skin General skin exam: no rashes or lesions noted Neuro General: patient oriented x3 Extrem General: Yes no pedal edema and No clubbing Results Reviewed Nephrology Results: Hgb, (12.0-16.0) 11.2 g/dl L 04/29/25 WBC, (4.8-10.8) 10.8 X10*3/uL 04/29/25 Plt Count, (160-400) 249 X10*3/uL 04/29/25 Sodium, (135-145) 138 mmol/L 04/29/25 Potassium, (3.3-5.1) 4.1 mmol/L 04/29/25 Chloride, (96-108) 104 mmol/L 04/29/25 Carbon Dioxide, (22-29) 27 mmol/L 04/29/25 BUN, (9-16) 9 mg/dL 04/29/25 Creatinine, (0.5-1.4) 0.58 mg/dL 04/29/25 Calcium, (8.4-10.2) 8.9 mg/dL Δ 04/29/25 Renal US 08/09/23 Assessment & Plan Assessment & Plan (1) Nephrolithiasis: Code(s): N20.0 - Calculus of kidney Category: Medical (2) Hypertension, essential: Code(s): I10 - Essential (primary) hypertension Category: Medical (3) Proteinuria: Code(s): R80.9 - Proteinuria, unspecified Category: Medical Qualifiers: Proteinuria type: persistent Qualified Code(s): R80.1 - Persistent proteinuria, unspecified Plan Middle-aged woman with a history of type submitted obesity with the proteinuria. Keep Losartan for renal protection. Blood pressure well controlled. As well nephrolithiasis I ordered a follow-up renal ultrasonogram to rule out any active kidney stones. I have discussed importance of low-sodium diet and increase her fluid intake to maintain urine output over 2 L. Orders: Orders UA and rflx microscopic 1 Year I10 - Essential (primary) hypertension, N20.0 - Calculus of kidney Creatinine Urine 1 Year I10 - Essential (primary) hypertension, N20.0 - Calculus of kidney Complete Blood Count no Diff 1 Year I10 - Essential (primary) hypertension, N20.0 - Calculus of kidney US renal BI 04/30/25 N20.0 - Calculus of kidney Basic Metabolic Panel 1 Year I10 - Essential (primary) hypertension, N20.0 - Calculus of kidney Total Protein Urine Random 1 Year I10 - Essential (primary) hypertension, N20.0 - Calculus of kidney Medications: New ferrous sulfate 325 mg PO DAILY 90 tabs 1RF Changed From losartan 100 mg PO DAILY To losartan 100 mg PO DAILY 90 tabs 1RF Coding Level of Care Code Est Pt Level 4 (14243) Diagnoses Nephrolithiasis N20.0 Hypertension, essential I10 Persistent proteinuria R80.1 Proteinuria type: persistent
--- OUTSIDE RECORDS SUMMARY | 2025-04-30 17:48 | XMS_ITS | Encounter Summary ---
Author Organization [facility] Address [address] [facility] [address] [place] [address] Phone Care Team Providers Care Media Buyer Name Role Phone Chelsea Mascorro MD Primary Care Provider [phone] Encounter Details Date Type Department Care Team (Late st Contact Info) Description 07/23/2020 Procedure Pass [facility], Ct Scan - [facility] [address] [place] [address] Social History Tobacco Use Types Packs/Day Years [...] 3:33 PM EST Selena Sutherland RN * [place] Suicide Severity Rating Scale (Screener/Recent Self-Report) Question [...] on filedocumented in this encounter Care Teams Media Buyer Relationship Specialty Start Date End Date Chelsea Mascorro MD [facility] [place] [address] PCP - General Internal Medicine 07/23/20 documented as of this encounter Additional Source Comments The information contained in this document represents components of the legal health record. It is not the complete legal health record.[facility]
--- OUTSIDE RECORDS SUMMARY | 2025-04-30 17:48 | XMS_ITS | Clinical Summary ---
Author Organization [facility] Address [address] [place] [address] Care Team Providers Care Cooker Casing Name Role Phone Unavailable Primary Care Provider [...]
--- OUTSIDE RECORDS SUMMARY | 2025-04-30 17:48 | XMS_ITS | Clinical Summary ---
Author Organization [facility] ity Address [address] [place] [phone] Care Team Providers Care Wall Mirror Department Supervisor Name Role Phone Chelsea Mascorro MD Primary Care Provider [phone] Social History Tobacco Use Types Packs/Day Years [...] age to complete this topic Care Teams Wall Mirror Department Supervisor Relationship Specialty Start Date End Date Chelsea Mascorro MD [address] [place] [address] PCP - General 08/14/15
--- OUTSIDE RECORDS SUMMARY | 2025-04-30 17:49 | XMS_ITS | Clinical Summary ---
Author Organization [facility] Address [address] [address] Phone Care Team Providers Care Wringer Machine Operator Name Role Phone Chelsea Mascorro MD Primary Care Provider [phone] Allergies Active Allergy Reactions Criticality Noted Date [...] Not on file [place] [address] Care Teams Wringer Machine Operator Relationship Specialty Start Date End Date Chelsea Mascorro MD [address] [place] [address] [place] [address] PCP - General Internal Medicine 07/23/20 Additional Source Comments The information contained in this document represents components of the legal health record. It is not the complete legal health record.[facility]
--- OUTSIDE RECORDS SUMMARY | 2025-04-30 17:49 | XMS_ITS | Clinical Summary ---
Author Organization [facility] Address [address] [address] Care Team Providers Care Behavioral Health Technician Name Role Phone Moe Ruiz MD Primary Care Provider [phone] Allergies Active Allergy Reactions Criticality Noted Date [...] mg/dl PVNMA 07/14/2020 us Rtama Conversion LAB [id number] LICITED RESULTS Final Result PVNMA from Last 3 Months or Most Recently Relevant to Health Maintenance Insurance Medicaid Care Teams Behavioral Health Technician Relationship Specialty Start Date End Date Moe Ruiz MD [address] [place] [address] PCP - General 08/30/20
--- OUTSIDE RECORDS SUMMARY | 2025-04-30 17:49 | XMS_ITS | Encounter Summary ---
Author Organization [facility] Address [address] [facility] [address] [place] [address] Phone Care Team Providers Care Commercial Escrow Assistant Name Role Phone Chelsea Mascorro MD Primary Care Provider [phone] Encounter Details Date Type Department Care Team (Late st Contact Info) Description 03/28/2022 Procedure Pass [facility], Ct Scan - [address] [address] Social History Tobacco Use Types Packs/Day Years [...] 03/28/2022 11:43 AM Silvia Stahl RN * [place] Suicide Severity Rating Scale (Screener/Recent Self-Report) Question [...] on filedocumented in this encounter Care Teams Commercial Escrow Assistant Relationship Specialty Start Date End Date Chelsea Mascorro MD [facility] [place] [address] PCP - General Internal Medicine 07/23/20 documented as of this encounter Additional Source Comments The information contained in this document represents components of the legal health record. It is not the complete legal health record.[facility]
== END 2025-04-30 14:14 | disposition home or self-care (01) ==
LOC: HO.HKA 13:57
PROVIDERS: PCP Internal Medicine; Visit Provider Internal Medicine Hypertension Specialist
DX: N20.0 Calculus of kidney (principal); I10 Essential (primary) hypertension; R80.1 Persistent proteinuria, unspecified
CPT/HCPCS: 99214

== ENCOUNTER → 2025-04-30 13:56 | Outpatient (BNVA) | payer OTHER, SELFPAY | PROVIDERS: PCP Internal Medicine; Visit Provider Internal Medicine Hypertension Specialist | DX: N20.0 Calculus of kidney (principal); I10 Essential (primary) hypertension; R80.1 Persistent proteinuria, unspecified | CPT/HCPCS: 99212 ==

== ENCOUNTER 2025-05-07 06:32 | Outpatient (AMB) | payer OTHER, SELFPAY ==
--- OUTSIDE RECORDS SUMMARY | 2025-05-07 06:36 | XMS_ITS | Clinical Summary ---
Author Organization [facility] Address [address] [place] [address] Care Team Providers Care Official Court Reporter Name Role Phone Unavailable Primary Care Provider [...]
--- OUTSIDE RECORDS SUMMARY | 2025-05-07 06:36 | XMS_ITS | Encounter Summary ---
Author Organization [facility] Address [address] [facility] [address] [place] [address] Phone Care Team Providers Care Syrup Mixer Helper Name Role Phone Chelsea Mascorro MD Primary Care Provider [phone] Encounter Details Date Type Department Care Team (Late st Contact Info) Description 03/28/2022 Procedure Pass [facility], Ct Scan - [address] [address] Social History Tobacco Use Types Packs/Day Years [...] 03/28/2022 11:43 AM Silvia Stahl RN * [place] Suicide Severity Rating Scale (Screener/Recent Self-Report) Question [...] on filedocumented in this encounter Care Teams Syrup Mixer Helper Relationship Specialty Start Date End Date Chelsea Mascorro MD [facility] [place] [address] PCP - General Internal Medicine 07/23/20 documented as of this encounter Additional Source Comments The information contained in this document represents components of the legal health record. It is not the complete legal health record.[facility]
--- OUTSIDE RECORDS SUMMARY | 2025-05-07 06:36 | XMS_ITS | Clinical Summary ---
Author Organization [facility] ity Address [address] [place] [phone] Care Team Providers Care Junction Maker Name Role Phone Chelsea Mascorro MD Primary Care Provider [phone] Social History Tobacco Use Types Packs/Day Years [...] age to complete this topic Care Teams Junction Maker Relationship Specialty Start Date End Date Chelsea Mascorro MD [address] [place] [address] PCP - General 08/14/15
--- OUTSIDE RECORDS SUMMARY | 2025-05-07 06:36 | XMS_ITS | Encounter Summary ---
Author Organization [facility] Address [address] [facility] [address] [place] [address] Phone Care Team Providers Care Fur Blowing Machine Attendant Name Role Phone Chelsea Mascorro MD Primary Care Provider [phone] Encounter Details Date Type Department Care Team (Late st Contact Info) Description 07/23/2020 Procedure Pass [facility], Ct Scan - [facility] [address] [place] [address] Social History Tobacco Use Types Packs/Day Years [...] 3:33 PM EST Selena Sutherland RN * [place] Suicide Severity Rating Scale (Screener/Recent Self-Report) Question [...] on filedocumented in this encounter Care Teams Fur Blowing Machine Attendant Relationship Specialty Start Date End Date Chelsea Mascorro MD [facility] [place] [address] PCP - General Internal Medicine 07/23/20 documented as of this encounter Additional Source Comments The information contained in this document represents components of the legal health record. It is not the complete legal health record.[facility]
--- OUTSIDE RECORDS SUMMARY | 2025-05-07 06:36 | XMS_ITS | Clinical Summary ---
Author Organization [facility] Address [address] [address] Phone Care Team Providers Care Canvas Goods Supervisor Name Role Phone Chelsea Mascorro MD Primary Care Provider [phone] Allergies Active Allergy Reactions Criticality Noted Date [...] file Insurance ACO ACO ACO Care Teams Canvas Goods Supervisor Relationship Specialty Start Date End Date Chelsea Mascorro MD [address] [place] [address] [place] [address] PCP - General Internal Medicine 07/23/20 Additional Source Comments The information contained in this document represents components of the legal health record. It is not the complete legal health record.[facility]
--- OUTSIDE RECORDS SUMMARY | 2025-05-07 06:36 | XMS_ITS | Clinical Summary ---
Author Organization [facility] Address [address] [address] Care Team Providers Care Gis Administrator Name Role Phone Moe uRiz MD Primary Care Provider [phone] Allergies Active Allergy Reactions Criticality Noted Date [...] mg/dl PVNMA 07/14/2020 us Rtama Conversion LAB [id number] LICITED RESULTS Final Result PVNMA from Last 3 Months or Most Recently Relevant to Health Maintenance Insurance Medicaid Care Teams Gis Administrator Relationship Specialty Start Date End Date Moe Ruiz MD [address] [place] [address] PCP - General 08/30/20
--- NOTE | 2025-05-07 08:44 | MHC.PC.OV ---
Intake Visit Reasons: 10 day F/U per [place] Allergies iron dextran complex (IRON DEXTRAN COMPLEX) Allergy (Severe, Verified 04/30/25 13:59) ANGIOEDEMA morphine (MORPHINE) Allergy (Unknown, Verified 04/30/25 13:59) ITCHING; GENERALIZED BURNING SENSATION, rash, rash lisinopril Adverse Reaction (Unknown, Verified 04/30/25 13:59) cough Iron Allergy (Unknown, Uncoded 12/11/23 10:04) unknown Pt states no known allergy to Allergy (Unknown, Uncoded 12/11/23 10:04) unknown Medication List - Last Reconciled 05/07/25 by Chelsea Mascorro MD atorvastatin 40 mg PO BEDTIME escitalopram oxalate (Lexapro) 10 mg PO DAILY 30 days ferrous sulfate 325 mg PO DAILY losartan 100 mg PO DAILY metformin 1,000 mg PO DAILY omeprazole 40 mg PO DAILY 90 days semaglutide 0.25 mg (0.368 mL) subcut QWEEK 30 days tirzepatide (Mounjaro) 5 mg subcut QWEEK valacyclovir 500 mg PO DAILY 90 days Tobacco use date assessed: 04/29/25 Dental Screening Dental Screen Date: 04/29/25 HPI 10 day F/U per [place] HPI Details History of Present Illness The patient is a 50 year old female presenting with a review of blood test results and requirement for neurology referral. Anemia: - The blood count shows slight fluctuations between normal and slightly low levels. - Hemoglobin measured at 11.2, with hemoglobin levels historically ranging between 11 and 12. - No reported history of hemorrhoids or gastrointestinal bleeding. - Recent initiation of iron supplementation prescribed by the patient's Literacy Coordinator. Elevated Vitamin B12: - The patient reports taking a Vitamin B12 supplement leading to elevated levels. - Advised to decrease the dosage frequency to every other day. Vitamin D Deficiency: - The patient reports ongoing low Vitamin D levels. - Continuation of Vitamin D supplementation advised. Leg Symptoms: - Experiences with tingling, numbness, and cramping in the legs. - Awaiting a neurology consultation for further evaluation. Patient wanted to see Dr Jimenez Diagnostic Results: - Labs: - Hemoglobin: 11.2 (Normal: 12) - Complete Blood Count: Shows fluctuation between normal and slightly low. - Blood Glucose: Sugar level at 91, part of the normal metabolic profile. - Kidney Function: Filtration rate and creatinine levels are normal. - Electrolytes: Normal. - Calcium: Normal. - Iron levels: Normal. Problem List - Anemia - Elevated Vitamin B12 - Vitamin D deficiency - Leg symptoms (potential neuropathy) Patient Instructions - Take iron supplements as prescribed. - Reduce Vitamin B12 supplement to every other day. - Continue Vitamin D supplementation as ongoing treatment. - Contact the neurologist office to schedule an appointment for leg symptoms. - Follow the prescribed recommendations and consult as required. Review of Systems - General: No fever no chills - Neurological: No headaches no dizziness - Ear nose throat: No sore throat no hearing difficulty no ear pain - Cardiovascular: No syncope, no chest pain, no palpitations - Gastrointestinal: No nausea vomiting or diarrhea - Endocrine: No polyuria polydipsia no heat intolerance - Genitourinary: No dysuria , no blood in urine PFSH Medical History Elevated vitamin B12 level Diabetes 1.5, managed as type 2 Exposure to COVID-19 virus Epigastric pain Obesity Surgical History H/O abdominoplasty Family History Mother Diabetes Father Diabetes Social History Household Members: Children and None Housing: Condominium Alcohol intake: current Alcohol intake frequency: holidays/special occasions only Patient Tobacco Use Status: Never used Tobacco e-Cigarette/Vaping Use: Never Used Current occupational status: unemployed Cognitive needs: No Hearing needs: No Vision needs: No Questionnaire Thrive Questionnaire Date Thrive assessed: 04/29/25 I am a: Patient What is your living situation today?: I have a steady place to live Within the past 12 months, did the food you bought not last and you didn't have the money to get more?: Often true Within the past 12 months, did you worry whether your food would run out before you got money to buy more?: Often true Do you have trouble paying for medicines?: I choose not to answer this question Do you have trouble getting transportation to medical appointments?: I choose not to answer this question Do you have trouble paying your heating and electricity bill?: I choose not to answer this question Do you have trouble taking care of your child, family member or friend?: I choose not to answer this question Do you have trouble with day-to-day activities such as bathing, preparing meals, shopping, managing finances, etc.?: I choose not to answer this question Are you currently unemployed and looking for a job?: I choose not to answer this question Are you interested in more education?: I choose not to answer this question Please select the resources that you would like help with: None Currently or been in a relationship where the following occur: I choose not to answer THRIVE Score: 2 ISAAC-7 AMB Questionnaire ISAAC-7 Date ISAAC - 7 assessed: 04/29/25 Source: Developed by Drs. Apolinar Green, Princess Greco, Horacio Gifford and colleagues, with an educational joaquin from [employer]. Physical exam (Primary Care) Tobacco/Smoking Status: Tobacco use Status Tobacco use date assessed 04/29/25 04/29/25 13:15 Patient Tobacco Use Status Never used Tobacco 04/29/25 13:15 e-Cigarette/Vaping Use Never Used 04/29/25 13:15 Thrive Assessment: Date of Thrive Assessment Date Thrive assessed 04/29/25 04/29/25 13:15 Currently or been in a relationship where the following occur: I choose not to answer Telehealth Telehealth [facility] Location of provider rendering services: practice address Location of patient: address on file Patient Identification confirmed using: Name, : Yes Telehealth method: video Patient verbally consented to treatment: Yes Patient verbally consented to billing insurance company: Yes Patient informed of any privacy concerns related to visit: Yes Minutes spent on Phone/Video with Pt.: 13 Coding Level of Care Code Tele Est Pt Level 3 (02477) Diagnoses Paresthesia of both feet R20.2 Microcytic anemia D50.9 Vitamin D deficiency E55.9 Assessment & Plan Assessment & Plan (1) Paresthesia of both feet: Code(s): R20.2 - Paresthesia of skin Category: Medical (2) Microcytic anemia: Code(s): D50.9 - Iron deficiency anemia, unspecified Category: Medical (3) Vitamin D deficiency: Code(s): E55.9 - Vitamin D deficiency, unspecified Category: Medical Plan History of Present Illness The patient is a 50 year old female presenting with a review of blood test results and requirement for neurology referral. Anemia: - The blood count shows slight fluctuations between normal and slightly low levels. - Hemoglobin measured at 11.2, with hemoglobin levels historically ranging between 11 and 12. - No reported history of hemorrhoids or gastrointestinal bleeding. - Recent initiation of iron supplementation prescribed by the patient's Literacy Coordinator. Elevated Vitamin B12: - The patient reports taking a Vitamin B12 supplement leading to elevated levels. - Advised to decrease the dosage frequency to every other day. Vitamin D Deficiency: - The patient reports ongoing low Vitamin D levels. - Continuation of Vitamin D supplementation advised. Leg Symptoms: - Experiences with tingling, numbness, and cramping in the legs. - Awaiting a neurology consultation for further evaluation. Patient wanted to see Dr Jimenez Diagnostic Results: - Labs: - Hemoglobin: 11.2 (Normal: 12) - Complete Blood Count: Shows fluctuation between normal and slightly low. - Blood Glucose: Sugar level at 91, part of the normal metabolic profile. - Kidney Function: Filtration rate and creatinine levels are normal. - Electrolytes: Normal. - Calcium: Normal. - Iron levels: Normal. Problem List - Anemia - Elevated Vitamin B12 - Vitamin D deficiency - Leg symptoms (potential neuropathy) Patient Instructions - Take iron supplements as prescribed. - Reduce Vitamin B12 supplement to every other day. - Continue Vitamin D supplementation as ongoing treatment. - Contact the neurologist office to schedule an appointment for leg symptoms. - Follow the prescribed recommendations and consult as required. Orders: Referrals Neurology Referral R20.2 - Paresthesia of skin
== END 2025-05-07 11:09 | disposition home or self-care (01) ==
LOC: HO.HMCC 06:33
PROVIDERS: PCP Internal Medicine; Visit Provider Internal Medicine
DX: R20.2 Paresthesia of skin (principal); D50.9 Iron deficiency anemia, unspecified; E55.9 Vitamin D deficiency, unspecified